=== PATIENT | male | born 1970 | race Caucasian/White ===

== ENCOUNTER 2018-10-23 14:36 | Observation (INO) ==
[2018-10-23] MEDS ORDERED: Piperacillin/Tazobactam 3.375 GM in Water for inj. (sterile) 20 ML 20 ML IVP ONE (14:51)
--- NOTE | 2018-10-23 14:54 | Emergency Department Note ---
Disposition Clinical Impression: Diabetic infection of right foot Disposition: Admitted As Inpatient Condition: Good Referrals: Gisele Valentin, [employer] [Primary Care Provider] - Forms: ED Satisfaction Letter Time of Disposition: 15:59 General Adult HPI - General Chief complaint: ED Extremity Problem,Nontraumatic Stated complaint: From Podiatry for Admission Time Seen by Provider: 10/23/18 14:43 Source: patient Mode of arrival: ambulatory Limitations: no limitations - History of Present Illness HPI Narrative: This is a 48-year-old male sent to the emergency department for admission after debridement of infected and necrotic tissue from the right great toe by the supervisor mixing in the office. He states that he developed a blister 8 weeks ago and just let it go. He has severe diabetic neuropathy. He did not realize it was as bad as it was. Wound culture was sent by podiatry. Pain Scale: 7 - Related Data Home Medications Medication Instructions Recorded Confirmed Metformin HCl [Fortamet] 1,000 mg PO BID 07/28/15 07/28/15 Pregabalin [Lyrica] 300 mg PO BID 07/28/15 07/28/15 TraMADol [Ultram] 1 tab PO Q6H PRN 07/28/15 07/28/15 Ambien 09/22/16 Amlodipine Besylate 09/22/16 Glimepiride [Amaryl] 09/22/16 Metformin HCl [Glucophage] 09/22/16 Methocarbamol [Robaxin-750] 09/22/16 Welchol 09/22/16 Previous Rx's Medication Instructions Recorded Tamsulosin [Flomax] 0.4 mg PO DAILY #15 cap.er.24h 07/28/15 Glycerin/Propylene Glycol [Soothe 1 each OP 2-3XD 7 Days droperette 09/22/16 Lubricant Eye Drops] Ibuprofen [Motrin] 600 mg PO Q6HR PRN #20 tab 06/18/17 Doxycycline 100 mg PO BID 10 Days #20 capsule 10/22/18 Allergies Allergy/AdvReac Type Severity Reaction Status Date / Time No Known Allergies Allergy Verified 10/22/18 10:48 All systems ED: reviewed and negative except as stated. Musculoskeletal: Reports: other (Necrotic diabetic foot infection of the right great toe) Past Medical History - Past Medical History Medical history: Reports: diabetes Surgical history: Reports: no surgical history Psychiatric history: Reports: no psych history - Social History Smoking Status: Never smoker Smokeless Tobacco Status: No Alcohol use: Reports: occasionally Drug use: Reports: none Physical Exam - General Limitations: no limitations General appearance: alert, in no apparent distress - Head Head exam: atraumatic, normocephalic, normal inspection - Eye Eye exam: Present: normal appearance, PERRL, EOMI - Chest Chest inspection: Present: normal inspection, symmetric chest wall rise - Respiratory Respiratory exam: Present: normal lung sounds bilaterally - Cardiovascular Cardiovascular exam: Present: regular rate, normal rhythm, normal heart sounds - Abdominal Exam Abdominal exam: Present: soft, Non-Tender. Absent: tenderness, distention, guarding, rebound, rigidity - Extremities Exam Extremities exam: Present: normal inspection, other (The right great toe has been wrapped by podiatry, and I did not unwrap it since debridement and dressing was just performed prior to emergency department arrival). Absent: pedal edema - Neurological Exam Neurological exam: Present: alert, oriented X3 - Psychiatric Psychiatric exam: Present: normal affect, normal mood - Skin Skin exam: Present: warm, dry, intact, normal color Course Course Narrative: This is a 48-year-old old male with a diabetic foot infection. It was severe enough that podiatry sent him here. With no allergies, I ordered Zosyn and vancomycin for antimicrobial coverage Vital Signs Temperature 98.3 F 10/23/18 14:39 Pulse Rate 91 10/23/18 14:39 Respiratory Rate 19 10/23/18 14:39 Blood Pressure 182/102 10/23/18 14:39 O2 Sat by Pulse Oximetry 97 10/23/18 14:39 Temperature 98.3 F 10/23/18 14:39 Pulse Rate 91 10/23/18 14:39 Respiratory Rate 19 10/23/18 14:39 Blood Pressure 182/102 10/23/18 14:39 O2 Sat by Pulse Oximetry 97 10/23/18 14:39 Oxygen Delivery Oxygen Delivery Room Air Medical Decision Making - MDM Narrative Medical decision making narrative: This is a 48-year-old male with a diabetic foot infection affecting the right great toe, now status post debridement and podiatry. Antibiotics have been given and he will be admitted to the hospitalist service. - Lab Data Lab results reviewed: Yes I reviewed the patient's lab results. Lab results narrative: CBC was unremarkable BMP was unremarkable ESR was elevated at 25 CRP was elevated at 27 Result diagrams: 10/23/18 15:09 10/23/18 15:09 Lab Results 10/23/18 10/23/18 10/23/18 Range/Units 15:09 15:09 15:09 WBC 7.9 (4.3-11.1) K/mcL RBC 4.95 (4.19-5.50) M/mcL Hgb 14.2 (12.9-16.9) g/dL Hct 42.2 (37.5-50.1) % MCV 85.3 (83.0-100.0) fL MCH 28.7 (28.0-33.3) pg MCHC 33.6 (31.6-35.5) g/dL RDW 14.3 (11.5-14.5) % Plt Count 209 (140-400) K/mcL MPV 11.0 (9.4-12.4) fL Immature Gran % 0.4 (0-4) % Seg Neutrophils % 57.1 % Lymphocytes % 30.1 % Monocytes % 8.7 % Eosinophils % 3.2 % Basophils % 0.5 % Neutrophils # 4.5 (1.6-8.9) K/mcL Lymphocytes # 2.4 (0.6-4.6) K/mcL Monocytes # 0.7 (0.0-1.3) K/mcL Eosinophils # 0.3 (0.0-0.6) K/mcL Basophils # 0.0 (0.0-0.2) K/mcL ESR 25 H (0-10) mm/hr Sodium 138 (136-145) mEq/L Potassium 3.9 (3.5-5.1) mEq/L Chloride 105 (98-107) mEq/L Carbon Dioxide 23 (23-29) mEq/L BUN 15 (6-20) mg/dL Creatinine 0.78 (0.70-1.30) mg/dL Est GFR ( Amer) > 60 (> 60) Est GFR (Non-Af Amer) > 60 (> 60) BUN/Creatinine Ratio 19 (6-26) Glucose 254 H (70-105) mg/dL Calculated Osmolality 295 (280-300) Calcium 9.3 (8.6-10.3) mg/dL C-Reactive Protein (Less than 10) mg/L 10/23/18 Range/Units 15:09 WBC (4.3-11.1) K/mcL RBC (4.19-5.50) M/mcL Hgb (12.9-16.9) g/dL Hct (37.5-50.1) % MCV (83.0-100.0) fL MCH (28.0-33.3) pg MCHC (31.6-35.5) g/dL RDW (11.5-14.5) % Plt Count (140-400) K/mcL MPV (9.4-12.4) fL Immature Gran % (0-4) % Seg Neutrophils % % Lymphocytes % % Monocytes % % Eosinophils % % Basophils % % Neutrophils # (1.6-8.9) K/mcL Lymphocytes # (0.6-4.6) K/mcL Monocytes # (0.0-1.3) K/mcL Eosinophils # (0.0-0.6) K/mcL Basophils # (0.0-0.2) K/mcL ESR (0-10) mm/hr Sodium (136-145) mEq/L Potassium (3.5-5.1) mEq/L Chloride (98-107) mEq/L Carbon Dioxide (23-29) mEq/L BUN (6-20) mg/dL Creatinine (0.70-1.30) mg/dL Est GFR ( Amer) (> 60) Est GFR (Non-Af Amer) (> 60) BUN/Creatinine Ratio (6-26) Glucose (70-105) mg/dL Calculated Osmolality (280-300) Calcium (8.6-10.3) mg/dL C-Reactive Protein 27 H (Less than 10) mg/L Critical Care Time Critical Care Time: No
[2018-10-23 15:22] LABS: Basophils % 0.5 %; Eosinophils # 0.3 K/mcL (0.0-0.6); Eosinophils % 3.2 %; Hematocrit 42.2 % (37.5-50.1); Hemoglobin 14.2 g/dL (12.9-16.9); Immature Granulocytes % 0.4 % (0-4); Lymphocytes # 2.4 K/mcL (0.6-4.6); Lymphocytes % 30.1 %; Mean Corpuscular HGB Conc 33.6 g/dL (31.6-35.5); Mean Corpuscular Hemoglobin 28.7 pg (28.0-33.3); Mean Corpuscular Volume 85.3 fL (83.0-100.0); Monocytes # 0.7 K/mcL (0.0-1.3); Monocytes % 8.7 %; Neutrophils # 4.5 K/mcL (1.6-8.9); Platelet Count 209 K/mcL (140-400); Red Blood Count 4.95 M/mcL (4.19-5.50); Red Cell Distribution Width 14.3 % (11.5-14.5); Segmented Neutrophils % 57.1 %
[2018-10-23 15:40] LABS: BUN/Creatinine Ratio 19 (6-26); Blood Urea Nitrogen 15 mg/dL (6-20); Calcium 9.3 mg/dL (8.6-10.3); Carbon Dioxide 23 mEq/L (23-29); Chloride 105 mEq/L (98-107); Glucose 254 mg/dL (70-105); Osmolality,Calculated 295 (280-300); Potassium 3.9 mEq/L (3.5-5.1); Sodium 138 mEq/L (136-145); eGFR For Non-African Americans > 60 (> 60)
[2018-10-23] MEDS ORDERED: Dextrose Gel 15 GM/37.5 ML TUBE PO PRN ×2 (16:09)
[2018-10-23] MEDS ORDERED: D5% in Water 1,000 ML IVC PRN (16:09)
[2018-10-23] MEDS ORDERED: *HR* Dextrose 50 % in Water (Syg) 50 ML SYRINGE IVP PRN (16:09)
[2018-10-23] MEDS ORDERED: Acetaminophen 325 MG TABLET PO PRN (16:47)
[2018-10-23] MEDS ORDERED: Naloxone 0.4 MG/ML INJ IVP PRN (16:47)
--- NOTE | 2018-10-23 16:49 | Internal Med History&Physical ---
Date of Encounter: 10/23/18 Time of Encounter: 16:45 Internal Medicine - H&P: HPI Chief complaint: Right big toe infection Admitted From: Home Plans for Post Hospital Care: Home History of present illness: Mr. Mata is a 48 year old male with medical history of hypertension, diabetes mellitus on oral agents, morbid obesity who presented to the emergency room after being referred from the podiatry clinic for evaluation for his right big toe infection. The patient reports he developed a blister on his right big toe a couple of months ago, he reports he has neuropathy and has some loss of sensation on his feet from his diabetes. However, he reports that blister did not improve, and when the skin came off, the wound continued to expand. He reports associated foul smelling discharge as well as subjective fever and chills. He presented to an urgent care facility and was started on doxycycline and referred to podiatry. On evaluation at the podiatry clinic today had a debridement done and referred to the hospital for further evaluation. He reports he has no had any fevers since 10/21, he denies chest, respiratory, abdominal, neurologic, or genitourinary symptoms. He has no known allergies He is otherwise hemodynamically stable He has never smoked, denied illicit drug use He is full code Work up in the ER showed a normal CBC and Chem. Hyperglycemia, CRP 27, ESR 25 He will be placed on observation for an infected diabetic ulcer, no current evidence of sepsis Past Med Surg Social Fam HX - Past Medical History Medical history: diabetes, other Additional medical history: peripheral neuropathy Psychiatric history: no psych history - Past Surgical History Surgical History: no surgical history - Social History Smoking Status: Never smoker Smokeless Tobacco Status: Yes Alcohol use: occasionally Drug use: none Internal Medicine - H&P: Meds Metformin HCl [Fortamet] 1,000 mg PO BID 07/28/15 [History] Pregabalin [Lyrica] 300 mg PO BID 07/28/15 [History] Tamsulosin [Flomax] 0.4 mg PO DAILY #15 cap.er.24h 07/28/15 [Rx] TraMADol [Ultram] 1 tab PO Q6H PRN 07/28/15 [History] Ambien 09/22/16 [History] Amlodipine Besylate 09/22/16 [History] Glimepiride [Amaryl] 09/22/16 [History] Glycerin/Propylene Glycol [Soothe Lubricant Eye Drops] 1 each OP 2-3XD 7 Days droperette 09/22/16 [Rx] Metformin HCl [Glucophage] 09/22/16 [History] Methocarbamol [Robaxin-750] 09/22/16 [History] Welchol 09/22/16 [History] Ibuprofen [Motrin] 600 mg PO Q6HR PRN #20 tab 06/18/17 [Rx] Doxycycline 100 mg PO BID 10 Days #20 capsule 10/22/18 [Rx] Allergy/AdvReac Type Severity Reaction Status Date / Time No Known Allergies Allergy Verified 10/23/18 16:06 All Systems PM: A 10-system review of systems was performed and is negative for pertinent findings except as documented above in the HPI. - Constitutional Constitutional: as per HPI - EENT Eyes: as per HPI Ears: as per HPI Nose, mouth and throat: as per HPI - Cardiovascular Cardiovascular ROS IM: as per HPI - Respiratory Respiratory: as per HPI - Gastrointestinal Gastrointestinal: as per HPI - Musculoskeletal Musculoskeletal ROS IM: as per HPI - Integumentary Integumentary IM: as per HPI - Neurological Neurological ROS: as per HPI - Hematologic/Lymphatic Hematologic/Lymphatic: as per HPI - Constitutional Vitals: Temp Pulse Resp BP Pulse Ox 98.3 F 72 20 150/80 97 10/23/18 16:11 10/23/18 16:11 10/23/18 16:11 10/23/18 16:11 10/23/18 16:11 Exam: Vitals : VSS Gen: Morbidly obese, not in any form of distress, calm HEENT: Moist oral mucosa, not pale, anicteric, normal neck inspection Chest: CTAB, no added sounds Heart: S1, S2 only, no m/g/r Abdomen: Soft, not tender, no palpably enlarged organs, obese, BS present in all quadrants Extremities: Right big toe in dressing, ~5X4 cm wound with granulation tissue, no visible bony component, no discharge, pulses present bilaterally Neurologic: AAOX3, moves all extremities, no focal deficits Psych: Appropriate affect, no agitation Skin: No rash Internal Med - H&P Results - Labs CBC & Chem 7: 10/23/18 15:09 10/23/18 15:09 Labs: Short CBC 10/23/18 Range/Units 15:09 WBC 7.9 (4.3-11.1) K/mcL Hgb 14.2 (12.9-16.9) g/dL Hct 42.2 (37.5-50.1) % Plt Count 209 (140-400) K/mcL Neutrophils # 4.5 (1.6-8.9) K/mcL BMP 10/23/18 15:09 Sodium 138 Potassium 3.9 Chloride 105 Carbon Dioxide 23 BUN 15 Creatinine 0.78 Glucose 254 H Calcium 9.3 - Impressions ITS Impressions Foot X-Ray 10/23/18 15:01 IMPRESSION: Questionable mild ulceration at recent debridement site at the medial 1st digit. No subcutaneous gas or evidence of osteomyelitis. D/ / Mino Randhawa MD / Mino Randhawa MD Interpreting Provider: Mino Randhawa MD - Assessment and plan (1) Cellulitis of great toe of right foot Current Visit: Yes Status: Acute Assessment and plan: Patient with hx of DM, who has had a Right big toe plantar surface wound for the past 8 weeks New onset fevers and chills which resolved after resuming antibiotics which she received at urgent care yesterday 10/22 Status post debridement by wood ski maker today 10/23 No evidence of sepsis No evidence of osteomyelitis x-ray ESR and CRP elevated at 25 and 27 respectively Blood culture sent and pending Continue vancomycin and Zosyn Follow cultures from wound debridement Patient is currently hemodynamically stable (2) Diabetes mellitus Current Visit: Yes Status: Chronic Assessment and plan: Patient with uncontrolled DM, the patient A1c was 7.2 at last visit Check A1c with a.m. start patient on basal and sliding scale insulin Fingerstick before meals and at bedtime Diabetic diet Qualifiers: Diabetes mellitus type: type 2 Diabetes mellitus nursing home insulin use: without long term care pharmacist use Diabetes mellitus complication status: with skin complications Diabetes mellitus complication detail: with foot ulcer Qualified Code(s): E11.621 - Type 2 diabetes mellitus with foot ulcer; L97.509 - Non-pressure chronic ulcer of other part of unspecified foot with unspecified severity (3) Obesity Current Visit: Yes Status: Chronic Assessment and plan: Lifestyle modification Qualifiers: Obesity type: unspecified obesity type Obesity classification: adult class 3 (BMI >= 40) Serious obesity comorbidity presence: without serious comorbidity Body mass index: BMI 40.0-44.9 Qualified Code(s): E66.01 - Morbid (severe) obesity due to excess calories; Z68.41 - Body mass index (BMI) 40.0-44.9, adult (4) HTN (hypertension) Current Visit: Yes Status: Chronic Assessment and plan: resume home meds Qualifiers: Hypertension type: essential hypertension Qualified Code(s): I10 - Essential (primary) hypertension - Time Spent With Patient Total time spent is greater than 50% in coordination of care (as documented) at patient's floor/unit and/or counseling patient:
[2018-10-23] MEDS ORDERED: amLODIPine 5 MG TABLET PO ONE (17:09)
[2018-10-23] MEDS: Insulin LISPRO 300 UNITS/3 ML VIAL SQ SCH ×2 (17:38→21:57)
[2018-10-23] MEDS: *HR* OxyCODONE Immed Rel 5 MG TABLET PO PRN (19:29)
[2018-10-23] MEDS: Insulin DETEMIR 100 UNIT/ML X5UNITS SQ SCH (21:58)
[2018-10-23] MEDS: *HR* HYDROcodone/Acet 5/325 mg TABLET PO PRN (22:47)
[2018-10-24] MEDS: Piperacillin/Tazobactam 3.375 GM in 0.9 % Sodium Chloride Mini Bag 100 ML IVPB SCH ×3 (00:20→16:56)
[2018-10-24 04:35] LABS: Basophils # 0.1 K/mcL (0.0-0.2); Basophils % 0.6 %; Eosinophils # 0.3 K/mcL (0.0-0.6); Eosinophils % 3.4 %; Hematocrit 39.5 % (37.5-50.1); Hemoglobin 12.8 g/dL (12.9-16.9); Immature Granulocytes % 0.2 % (0-4); Lymphocytes # 3.1 K/mcL (0.6-4.6); Lymphocytes % 38.1 %; Mean Corpuscular HGB Conc 32.4 g/dL (31.6-35.5); Mean Corpuscular Hemoglobin 28.2 pg (28.0-33.3); Mean Platelet Volume 11.2 fL (9.4-12.4); Monocytes # 0.8 K/mcL (0.0-1.3); Monocytes % 9.2 %; Platelet Count 194 K/mcL (140-400); Red Blood Count 4.54 M/mcL (4.19-5.50); Red Cell Distribution Width 14.6 % (11.5-14.5); Segmented Neutrophils % 48.5 %
[2018-10-24] MEDS: *HR* OxyCODONE Immed Rel 5 MG TABLET PO PRN ×2 (04:36→15:01)
[2018-10-24 04:57] LABS: BUN/Creatinine Ratio 15 (6-26); Blood Urea Nitrogen 13 mg/dL (6-20); Carbon Dioxide 27 mEq/L (23-29); Chloride 104 mEq/L (98-107); Glucose 107 mg/dL (70-105); Osmolality,Calculated 289 (280-300); Potassium 3.6 mEq/L (3.5-5.1); Sodium 139 mEq/L (136-145); eGFR For Non-African Americans > 60 (> 60)
--- NOTE | 2018-10-24 07:20 | Podiatry Consult Note ---
Date of Encounter: 10/24/18 Time of Encounter: 07:16 Assessment and Plan (1) Cellulitis of great toe of right foot Current visit: Yes Status: Acute 1. Patient with improved cellulitis after starting IV antibiotics. 2. Continue Vanc/Zosyn until cultures finalize. 3. Will monitor on IV antibiotics for 48 hours and likely discharge at that time with PO antibiotics. (2) Diabetic infection of right foot Current visit: Yes Status: Acute 1. WBC normal. ESR and CRP mildly elevated. Xrays reviewed which showed not evidence of osteomyelitis of the toe. Overall, he is stable and cellulitis is improving. I recommend continued local wound care and IV antibiotics. Will tailor PO antibiotics based on cultures sent from clinic yesterday. 2. Wound irrigated with normal saline and dressed with betadine soaked kerlix. Will change daily. 3. No MRI warranted at this time. History of Present Illness Chief complaint: right foot wound infction HPI: Mr. Mata is a 48 year old male admitted to [facility] after being seen in P odiatry clinic yesterday. He reports that 8 weeks ago he developed a blister to the right 1st toe that became a larger ulceration. He reported subjective fever and chills 2 days prior to admission. He denies n/v/f/c at this time. He was initially started on PO Doxycycline after going to urgent care. He reports that he is feeling better today and believes the redness has gone down. Past Med Surg Social Fam HX - Past Medical History Medical history: diabetes, other Additional medical history: peripheral neuropathy Psychiatric history: no psych history - Past Surgical History Surgical History: no surgical history - Social History Smoking Status: Never smoker Smokeless Tobacco Status: Yes Alcohol use: occasionally Drug use: none - Family History Mother Living Status: Still Living Father Living Status: Medications and Allergies Metformin HCl [Fortamet] 1,000 mg PO BID 07/28/15 [History] Pregabalin [Lyrica] 300 mg PO BID 07/28/15 [History] Colesevelam HCl [Welchol] 1,875 mg PO DAILY 09/22/16 [History] Glimepiride [Amaryl] 4 mg PO BID 09/22/16 [History] Methocarbamol [Robaxin-750] 750 mg PO BID 09/22/16 [History] Doxycycline 100 mg PO BID 10 Days #20 capsule 11/26/18 [Rx] Amitriptyline [Elavil] 25 mg PO HS PRN 10/23/18 [History] Pioglitazone HCl 30 mg PO DAILY 10/23/18 [History] Tadalafil [Cialis] 5 mg PO DAILY PRN 10/23/18 [History] Tramadol HCl [Ultram] 50 mg PO QID PRN 10/23/18 [History] Zolpidem [Ambien] 10 mg PO HS 10/23/18 [History] Allergy/AdvReac Type Severity Reaction Status Date / Time No Known Allergies Allergy Verified 10/23/18 16:06 All Systems Reviewed: The remainder of the systems were reviewed and are negative Physical Exam - Constitutional Vitals: Temp Pulse Resp BP Pulse Ox 98.2 F 66 16 133/84 96 10/24/18 03:44 10/24/18 03:44 10/24/18 03:44 10/24/18 03:44 10/24/18 03:44 Exam: Alert, oriented x3, well-appearing. Vascular: DP and PT palpable bilateral. Capillary refill less than 3 seconds to all digits. Skin temperature warm to warm comparing toes to legs. Dermatology: Right medial hallux ulceration Salazar grade II, measuring 3.0cm x 2.5cm x 0.5cm. Granular base 90% with 10% fibrotic tissue. No probe to bone. Erythema extending to IPJ, improved since yesterday. No crepitus. No active drainage. Musculoskeletal: Tenderness right hallux ulcer. Hallux limitus. No pain with compression of calf. Neuro: Sensations diminished bilateral lower extremity. Results - Labs Result Diagrams: 10/24/18 03:36 10/24/18 03:36 Labs: Abnormal lab results Hgb 12.8 g/dL (12.9-16.9) L 10/24/18 03:36 RDW 14.6 % (11.5-14.5) H 10/24/18 03:36 ESR 25 mm/hr (0-10) H 10/23/18 15:09 Glucose 107 mg/dL (70-105) H 10/24/18 03:36 C-Reactive Protein 27 mg/L (Less than 10) H 10/23/18 15:09 H & H 10/23/18 10/24/18 Range/Units 15:09 03:36 Hgb 14.2 12.8 L (12.9-16.9) g/dL Hct 42.2 39.5 (37.5-50.1) % All other labs normal. Consult Discharge Plan - Plan Additional Instructions: 1. Wound care dressing daily with: normal saline irrigation, silvercel and dry dressing to the wound. Orthowedge shoe will be dispensed prior to discharge for offloading. 2. Follow up with Dr. Andre Amaro in Podiatry clinic 2 weeks after discharge. Referrals: Gisele Valentin, [facility] [Primary Care Provider] -
[2018-10-24] MEDS: Insulin LISPRO 300 UNITS/3 ML VIAL SQ SCH ×4 (07:33→19:41)
[2018-10-24] MEDS: amLODIPine 5 MG TABLET PO SCH (07:45)
[2018-10-24] MEDS: *HR* HYDROcodone/Acet 5/325 mg TABLET PO PRN ×2 (07:45→19:32)
[2018-10-24 08:19] LABS: Estimated Average Glucose 163 mg/dl; Hemoglobin A1C 7.3 %
--- NOTE | 2018-10-24 13:31 | Internal Med Progress Note ---
Hospitalist Progress Note - Encounter Date of Encounter: 10/24/18 Time of Encounter: 12:00 - Subjective Interval History: Mr. Mata is a 48 year old male with medical history of hypertension, diabetes mellitus on oral agents, morbid obesity who presented to the emergency room after being referred from the podiatry clinic for evaluation for his right big toe open ulcer and cellulites. Pt did mention he noticed a small blister few weeks ago who seems to be progressively worsening and developed into an ulcer now. he also noticed worsening swelling and erythema around the ulcer area. - Exam Vitals: Temp Pulse Resp BP Pulse Ox 98.8 F 71 16 158/78 95 10/24/18 10:46 10/24/18 10:46 10/24/18 10:46 10/24/18 10:46 10/24/18 10:46 Exam: Gen: Morbidly obese, not in any form of distress, calm Chest: CTAB, no wheezing Heart: S1, S2+ RRR No murmurs Abdomen: Soft, not tender Extremities: Right big toe in dressing, ~5X4 cm wound with nice granulation tissue and small discharge, no visible bony component noticed, pulses present bilaterally Neurologic: no focal deficits Skin: No rash - Assessment and Plan (1) Cellulitis of great toe of right foot Current Visit: Yes Status: Acute Assessment and Plan: So far blood cx no growth Wound cx - P Podiatry evaluated the pt , recommend to continue IV abx another day will deescalate abx after wound cx results continue empirical antibiotic vancomycin and Zosyn for now (2) Diabetes mellitus Current Visit: Yes Status: Chronic Assessment and Plan: HbA1C 7.3 Cont ADA diet Cont ISS (3) Obesity Current Visit: Yes Status: Chronic Assessment and Plan: Lifestyle modification (4) HTN (hypertension) Current Visit: Yes Status: Chronic Assessment and Plan: Stable with current home medications - Time Spent with Patient Total time spent is greater than 50% in coordination of care (as documented) at patient's floor/unit and/or counseling patient: Internal Medicine: Result - Labs CBC & Chem 7: 10/24/18 03:36 10/24/18 03:36 Labs: Short CBC 10/23/18 10/24/18 Range/Units 15:09 03:36 WBC 7.9 8.2 (4.3-11.1) K/mcL Hgb 14.2 12.8 L (12.9-16.9) g/dL Hct 42.2 39.5 (37.5-50.1) % Plt Count 209 194 (140-400) K/mcL Neutrophils # 4.5 4.0 (1.6-8.9) K/mcL BMP 10/23/18 10/24/18 15:09 03:36 Sodium 138 139 Potassium 3.9 3.6 Chloride 105 104 Carbon Dioxide 23 27 BUN 15 13 Creatinine 0.78 0.86 Glucose 254 H 107 H Calcium 9.3 9.0 - Impressions Impressions Foot X-Ray 10/23/18 15:01 IMPRESSION: Questionable mild ulceration at recent debridement site at the medial 1st digit. No subcutaneous gas or evidence of osteomyelitis. D/ / Mino Randhawa MD / Mino Randhawa MD Interpreting Provider: Mino Randhawa MD Consult Discharge Plan - Plan Additional Instructions: 1. Wound care dressing daily with: normal saline irrigation, silvercel and dry dressing to the wound. Orthowedge shoe will be dispensed prior to discharge for offloading. 2. Follow up with Dr. Andre Amaro in Podiatry clinic 2 weeks after discharge. Referrals: Gisele Valentin, SYSTEMS ACCOUNTANT [Primary Care Provider] - (2) Diabetes mellitus Qualifiers: Diabetes mellitus type: type 2 Diabetes mellitus superintendent container terminal insulin use: without superintendent container terminal use Diabetes mellitus complication status: with skin complications Diabetes mellitus complication detail: with foot ulcer Qualified Code(s): E11.621 - Type 2 diabetes mellitus with foot ulcer; L97.509 - Non- pressure chronic ulcer of other part of unspecified foot with unspecified severity (3) Obesity Qualifiers: Obesity type: unspecified obesity type Obesity classification: adult class 3 (BMI >= 40) Serious obesity comorbidity presence: without serious comorbidity Body mass index: BMI 40.0-44.9 Qualified Code(s): E66.01 - Morbid (severe) obesity due to excess calories; Z68.41 - Body mass index (BMI) 40.0-44.9, adult (4) HTN (hypertension) Qualifiers: Hypertension type: essential hypertension Qualified Code(s): I10 - Essential (primary) hypertension
[2018-10-24] MEDS: Insulin DETEMIR 100 UNIT/ML X5UNITS SQ SCH (20:27)
[2018-10-25] MEDS: Piperacillin/Tazobactam 3.375 GM in 0.9 % Sodium Chloride Mini Bag 100 ML IVPB SCH ×2 (01:40→09:00)
[2018-10-25] MEDS: *HR* OxyCODONE Immed Rel 5 MG TABLET PO PRN ×2 (01:43→09:18)
[2018-10-25] MEDS: *HR* HYDROcodone/Acet 5/325 mg TABLET PO PRN (05:49)
[2018-10-25 07:52] VITALS: BP 145/80
--- NOTE | 2018-10-25 08:01 | Podiatry Progress Note ---
Date of Encounter: 10/25/18 Time of Encounter: 07:57 - Assessment and Plan (1) Cellulitis of great toe of right foot Current Visit: Yes Status: Acute 1. Cellulitis has improved with IV antibiotics. 2. Continue Vanc/Zosyn for total of 48 hours which should end later today. Then transition to PO Bactrim for 2 weeks at discharge. 3. Patient can discharge later today with local wound care: normal saline irrigation daily followed by Santyl to the wound, then dry dressing. 4. Follow up with Dr. Andre Amaro in Podiatry clinic on 11/02/18. (2) Diabetic infection of right foot Current Visit: Yes Status: Acute 1. WBC normal. ESR and CRP mildly elevated. Xrays reviewed which showed not evidence of osteomyelitis of the toe. Overall, he is stable and cellulitis is improving. Patient can discharge later today with previously mentioned recommendations. 2. No MRI warranted at this time. Subjective Principal diagnosis: diabetic foot ulcer, cellulitis Interval history: Patient progressing well. Cellulitis improving on IV antibiotics. Cultures not yet processed from tissue culture performed in clinic. Patient can discharge later today after total of 48 hours IV antibiotics and will follow up in clinic. He denies n/v/f/c. Objective - Vital Signs Vital Signs: Vital Signs Temp Pulse Resp BP Pulse Ox 10/25/18 07:47 97.7 F 53 18 145/80 96 10/25/18 03:54 98.3 F 57 14 128/76 93 10/24/18 23:24 97.8 F 59 14 139/79 95 10/24/18 19:23 98.1 F 72 16 148/88 97 10/24/18 16:00 98.0 F 57 17 141/76 97 10/24/18 10:46 98.8 F 71 16 158/78 95 Intake and Output 10/24/18 10/24/18 10/25/18 15:59 23:59 07:59 Intake Total 340 / 340 840 / 840 Output Total 0 / 0 0 / 0 Balance 340 / 340 840 / 840 0 / 0 Intake: IV Fluids 100 / 100 600 / 600 Zosyn 3.375 GM In 0.9 % Sodium 100 / 100 100 / 100 Chloride (Mini-Bag +) 100 ML @ 25 mls/hr IVPB Q8HR [facility] Rx#: [id number] Vancocin 2,000 MG In 0.9 % 500 / 500 Sodium Chloride 500 ML @ 250 mls/hr IVPB Q12H [facility] Rx#: [id number] Oral 240 / 240 240 / 240 Output: Urine 0 / 0 0 / 0 Other: Meal Lunch Dinner Percent of Meal Consumed 50% 100% Weight 139.6 kg Blood Glucose* 154 189 163 Patient Weight 10/25/18 23:59 Weight 139.6 kg - Exam Exam: Alert, oriented x3, well-appearing. Vascular: DP and PT palpable bilateral. Capillary refill less than 3 seconds to all digits. Skin temperature warm to warm comparing toes to legs. Dermatology: Right medial hallux ulceration Salazar grade II, measuring 3.0cm x 2.5cm x 0.5cm. Granular base 90% with 10% fibrotic tissue. No probe to bone. Mild periwound erythema, with continued improvement. No crepitus. No active drainage. Musculoskeletal: Tenderness right hallux ulcer. Hallux limitus. No pain with compression of calf. Neuro: Sensations diminished bilateral lower extremity. - Lab Result Diagrams: 10/24/18 03:36 10/24/18 03:36 Labs: Abnormal lab results Hgb 12.8 g/dL (12.9-16.9) L 10/24/18 03:36 RDW 14.6 % (11.5-14.5) H 10/24/18 03:36 ESR 25 mm/hr (0-10) H 10/23/18 15:09 Glucose 107 mg/dL (70-105) H 10/24/18 03:36 POC Glucose 189 mg/dL (70-99) H 10/24/18 19:40 Hemoglobin A1c 7.3 % (-5.6) H 10/24/18 03:36 C-Reactive Protein 27 mg/L (Less than 10) H 10/23/18 15:09 Vancomycin Trough 13 mcg/mL (5-10) H 10/25/18 04:13 Microbiology, Last 48 Hours 10/23/18 15:09 Blood Culture - Preliminary Peripheral Venipuncture Culture is incubating and being continuously monitored for growth. Final report to follow. 10/23/18 15:09 Blood Culture - Preliminary Peripheral Venipuncture Culture is incubating and being continuously monitored for growth. Final report to follow. Consult Discharge Plan - Plan Additional Instructions: 1. Wound care dressing daily with: normal saline irrigation, Santyl and dry dressing to the wound. Orthowedge shoe will be dispensed prior to discharge for offloading. Please discharge with Bactrim x14 days at discharge. Will follow up previous culture to determine further antibiotic needs in the outpatient setting. 2. Follow up with Dr. Andre Amaro on 11/02/18. Please assist with scheduling this follow up appointment. Referrals: Gisele Valentin, CA[facility] [Primary Care Provider] -
[2018-10-25] MEDS: Insulin LISPRO 300 UNITS/3 ML VIAL SQ SCH (09:01)
[2018-10-25] MEDS: amLODIPine 5 MG TABLET PO SCH (09:02)
[2018-10-25 09:12] LABS: Hematocrit 40.4 % (37.5-50.1); Hemoglobin 13.2 g/dL (12.9-16.9)
--- NOTE | 2018-10-25 11:08 | Discharge Summary ---
- NOTES TO OUTPATIENT PROVIDER Notes to Outpatient Provider: Please follow up with PCP in one week. Please follow up with health/safety job [facility] Dr. Amaro in 1 week. Continue local wound care with daily dressing - normal saline irrigation daily followed by Ubaldoyl to the wound, then dry dressing Orders not resulted at time of discharge: Pending orders 10/23/18 15:09 Culture,Blood [BC] Stat Date of Encounter: 10/25/18 Time of Encounter: 11:02 - Discharge Diagnosis (1) Cellulitis of great toe of right foot Priority: Primary Status: Acute (2) Diabetes mellitus Priority: Secondary Status: Chronic Qualifiers: Diabetes mellitus type: type 2 Diabetes mellitus chcf insulin use: without chcf use Diabetes mellitus complication status: with skin complications Diabetes mellitus complication detail: with foot ulcer Qualified Code(s): E11.621 - Type 2 diabetes mellitus with foot ulcer; L97.509 - Non-pressure chronic ulcer of other part of unspecified foot with unspecified severity (3) Obesity Priority: Secondary Status: Chronic Qualifiers: Obesity type: unspecified obesity type Obesity classification: adult class 3 (BMI >= 40) Serious obesity comorbidity presence: without serious comorbidity Body mass index: BMI 40.0-44.9 Qualified Code(s): E66.01 - Morbid (severe) obesity due to excess calories; Z68.41 - Body mass index (BMI) 40.0-44.9, adult (4) HTN (hypertension) Priority: Secondary Status: Chronic Qualifiers: Hypertension type: essential hypertension Qualified Code(s): I10 - Essential (primary) hypertension Hospital course: Mr. Mata is a 48 year old male with medical history of hypertension, diabetes mellitus on oral agents, morbid obesity who presented to the emergency room after being referred from the podiatry clinic for evaluation for his right big toe open ulcer and cellulites. Pt did mention he noticed a small blister few weeks ago who seems to be progressively worsening and developed into an ulcer now. he also noticed worsening swelling and erythema around the ulcer area. Patient was admitted in the hospital and started him on empirical antibiotic Zosyn and vancomycin. Pt was evaluated by health/safety job [facility], recommend to continue abx and local wound care. His blood culture did not grow any bacteria. His wound culture from 10/22/18 did not grow any bacteria. His foot swelling and cellulitis improved. Ulcer more granulation tissue now. At this point samara rist recommended to switch to oral antibiotic Bactrim for 2 weeks. So will d/c him home in stable condition today. - Time Spent with Patient Total time spent providing and/or coordinating discharge services: - Discharge Medications Prescriptions: amLODIPine [Norvasc] 10 mg PO DAILY #30 tablet Lactobacillus Acidophilus [Acidophilus] 1 each PO BID #60 capsule Sulfamethoxazole/Trimeth DS [Bactrim DS] 1 each PO BID #30 tablet Home Medications: Metformin HCl [Fortamet] 1,000 mg PO BID 07/28/15 [History] Pregabalin [Lyrica] 300 mg PO BID 07/28/15 [History] Colesevelam HCl [Welchol] 1,875 mg PO DAILY 09/22/16 [History] Glimepiride [Amaryl] 4 mg PO BID 09/22/16 [History] Methocarbamol [Robaxin-750] 750 mg PO BID 09/22/16 [History] Amitriptyline [Elavil] 25 mg PO HS PRN 10/23/18 [History] Pioglitazone HCl 30 mg PO DAILY 10/23/18 [History] Tadalafil [Cialis] 5 mg PO DAILY PRN 10/23/18 [History] Tramadol HCl [Ultram] 50 mg PO QID PRN 10/23/18 [History] Zolpidem [Ambien] 10 mg PO HS 10/23/18 [History] Lactobacillus Acidophilus [Acidophilus] 1 each PO BID #60 capsule 10/25/18 [Rx] Sulfamethoxazole/Trimeth DS [Bactrim DS] 1 each PO BID #30 tablet 10/25/18 [Rx] amLODIPine [Norvasc] 10 mg PO DAILY #30 tablet 10/25/18 [Rx] Allergies/Adverse Reactions: Allergy/AdvReac Type Severity Reaction Status Date / Time No Known Allergies Allergy Verified 10/23/18 16:06 Date of admission: 10/23/18 16:33 Primary care physician: Gisele Valentin CNP - Constitutional Vitals: Temp Pulse Resp BP Pulse Ox 97.7 F 53 18 145/80 96 10/25/18 07:47 10/25/18 07:47 10/25/18 07:47 10/25/18 07:47 10/25/18 07:47 General appearance: Present: cooperative, A&O X 3, answers questions appropriately Exam: Gen: Morbidly obese, not in any form of distress, calm Chest: CTAB, no wheezing Heart: S1, S2+ RRR No murmurs Abdomen: Soft, not tender Extremities: Right big toe in dressing, ~5X4 cm wound with nice granulation tissue and no visible bony component noticed, pulses present bilaterally Neurologic: no focal deficits - Patient Status Disposition: Home, Self-Care Condition: Good Overall status at discharge: patient is back to baseline - Discharge Instructions Instructions: Cellulitis (DC) Follow Up With: Gisele Valentin, [facility] [Primary Care Provider] - Andre Amaro DPM [Partnered Physician] - Additional Instructions: 1. Wound care dressing daily with: normal saline irrigation, Santyl and dry dressing to the wound. Orthowedge shoe will be dispensed prior to discharge for offloading. Please discharge with Bactrim x14 days at discharge. Will follow up previous culture to determine further antibiotic needs in the outpatient setting. 2. Follow up with Dr. Andre Amaro on 11/02/18. Please assist with scheduling this follow up appointment. - Diet and Activity Activity: increase activity as tolerated Diet: low salt diet
== END 2018-10-25 13:19 | disposition home or self-care (01) ==
LOC: 3BNU 14:36 → EMEROOARM 14:36 → SUATTDRO 16:33 → 3BNU 17:25
PROVIDERS: ADMIT Internal Medicine Cardiovascular Disease; ATTEND Family Medicine

== ENCOUNTER 2020-06-24 12:45 | Inpatient (IN) ==
[2020-06-24] MEDS ORDERED: 0.9 % Sodium Chloride 1,000 ML IVC ONE (13:16)
[2020-06-24 13:36] LABS: Basophils # 0.1 K/mcL (0.0-0.2); Basophils % 0.3 %; Eosinophils # 0.1 K/mcL (0.0-0.6); Eosinophils % 0.6 %; Immature Granulocytes % 0.3 % (0-4); Lymphocytes # 1.3 K/mcL (0.6-4.6); Lymphocytes % 8.8 %; Mean Corpuscular HGB Conc 32.6 g/dL (31.6-35.5); Mean Corpuscular Hemoglobin 29.2 pg (28.0-33.3); Mean Corpuscular Volume 89.6 fL (83.0-100.0); Mean Platelet Volume 11.3 fL (9.4-12.4); Monocytes # 1.2 K/mcL (0.0-1.3); Monocytes % 8.5 %; Neutrophils # 11.7 K/mcL (1.6-8.9); Platelet Count 223 K/mcL (140-400); Segmented Neutrophils % 81.5 %; White Blood Count 14.4 K/mcL (4.3-11.1)
[2020-06-24] MEDS ORDERED: Morphine Sulfate 2 MG/ML SYRINGE IVP ONE (13:55)
[2020-06-24 14:01] LABS: Alanine Aminotransferase 12 Units/L (7-52); Albumin 4.2 g/dL (3.5-5.7); Albumin/Globulin Ratio 1.4 (1.1-2.2); Alkaline Phosphatase 84 Units/L (34-104); Aspartate Amino Transferase 9 Units/L (13-39); BUN/Creatinine Ratio 15 (6-26); Bilirubin,Total 0.5 mg/dL (0.3-1.0); Blood Urea Nitrogen 14 mg/dL (6-20); C-Reactive Protein 158 mg/L (Less than 10); Calcium 9.5 mg/dL (8.6-10.3); Carbon Dioxide 22 mEq/L (23-29); Chloride 102 mEq/L (98-107); Globulin 3.1 g/dL (2.4-3.5); Glucose 297 mg/dL (70-105); Osmolality,Calculated 294 (280-300); Sodium 136 mEq/L (136-145); Total Protein 7.3 g/dL (6.4-8.9); Troponin I 0.03 ng/mL (< 0.04); eGFR For African Americans > 60 (> 60); eGFR For Non-African Americans > 60 (> 60)
[2020-06-24] MEDS ORDERED: Piperacillin/Tazobactam 3.375 GM in 0.9 % Sodium Chloride Mini Bag 100 ML IVPB ONE (14:11)
[2020-06-24] MEDS ORDERED: Gadolinium Contrast Agent (WT Based) IV PRN (15:08)
[2020-06-24] MEDS ORDERED: Naloxone 0.4 MG/ML INJ IVP PRN (16:30)
[2020-06-24] MEDS ORDERED: *HR* HYDROcodone/Acet 5/325 mg TABLET PO PRN (16:50)
[2020-06-24] MEDS ORDERED: Ondansetron ODT 4 MG TAB.RAPDIS SL PRN (16:50)
[2020-06-24] MEDS ORDERED: *HR* Dextrose 50 % in Water (Vial) 50 ML VIAL IVP PRN (17:06)
[2020-06-24] MEDS ORDERED: D5% in Water 1,000 ML IVC PRN (17:06)
[2020-06-24] MEDS ORDERED: Dextrose Gel 15 GM/37.5 ML TUBE PO PRN ×2 (17:06)
[2020-06-24] MEDS: Lactobacillus 1 EACH CAP.SPRINK PO SCH (20:49)
[2020-06-24] MEDS: methocarbamoL 750 MG TABLET PO SCH (20:49)
[2020-06-24] MEDS: Pregabalin 75 MG CAPSULE PO SCH (20:49)
[2020-06-24] MEDS: Acetaminophen 325 MG TABLET PO PRN (20:50)
[2020-06-24] MEDS ORDERED: Insulin LISPRO 300 UNITS/3 ML VIAL SQ SCH (21:00)
[2020-06-24] MEDS: *HR* OxyCODONE Immed Rel 5 MG TABLET PO PRN (22:18)
[2020-06-25] MEDS: Piperacillin/Tazobactam 3.375 GM in 0.9 % Sodium Chloride Mini Bag 100 ML IVPB SCH ×4 (00:40→23:40)
[2020-06-25 03:44] LABS: Basophils % 0.2 %; Eosinophils # 0.2 K/mcL (0.0-0.6); Eosinophils % 1.4 %; Hematocrit 36.7 % (37.5-50.1); Immature Granulocytes % 0.6 % (0-4); Lymphocytes # 2.5 K/mcL (0.6-4.6); Lymphocytes % 19.1 %; Mean Corpuscular HGB Conc 32.4 g/dL (31.6-35.5); Mean Corpuscular Hemoglobin 29.2 pg (28.0-33.3); Mean Corpuscular Volume 90.2 fL (83.0-100.0); Mean Platelet Volume 11.4 fL (9.4-12.4); Monocytes # 1.3 K/mcL (0.0-1.3); Neutrophils # 9.1 K/mcL (1.6-8.9); Platelet Count 193 K/mcL (140-400); Red Blood Count 4.07 M/mcL (4.19-5.50); Red Cell Distribution Width 13.8 % (11.5-14.5); Segmented Neutrophils % 68.7 %; White Blood Count 13.2 K/mcL (4.3-11.1)
[2020-06-25 03:45] LABS: Hemoglobin 11.9 g/dL (12.9-16.9)
[2020-06-25 03:48] LABS: INR 1.2; Prothrombin Time 13.4 Seconds (9.4-12.1)
[2020-06-25 03:51] LABS: Activated Partial Thrombo Time 27.4 Seconds (26.0-36.0)
[2020-06-25 04:05] LABS: BUN/Creatinine Ratio 14 (6-26); Blood Urea Nitrogen 13 mg/dL (6-20); Calcium 8.6 mg/dL (8.6-10.3); Carbon Dioxide 23 mEq/L (23-29); Chloride 103 mEq/L (98-107); Glucose 232 mg/dL (70-105); Osmolality,Calculated 284 (280-300); Sodium 133 mEq/L (136-145); eGFR For African Americans > 60 (> 60); eGFR For Non-African Americans > 60 (> 60)
[2020-06-25] MEDS ORDERED: amLODIPine 5 MG TABLET PO SCH (09:00)
[2020-06-25] MEDS: Acetaminophen 325 MG TABLET PO PRN ×2 (09:00→15:35)
[2020-06-25] MEDS: *HR* OxyCODONE Immed Rel 5 MG TABLET PO PRN ×4 (09:00→23:41)
[2020-06-25] MEDS: Lactobacillus 1 EACH CAP.SPRINK PO SCH ×2 (09:02→21:07)
[2020-06-25] MEDS: Insulin LISPRO 300 UNITS/3 ML VIAL SQ SCH ×4 (09:02→21:09)
[2020-06-25] MEDS: methocarbamoL 750 MG TABLET PO SCH ×2 (09:02→21:04)
[2020-06-25] MEDS: Pregabalin 75 MG CAPSULE PO SCH ×2 (09:02→21:03)
[2020-06-25 10:04] LABS: Estimated Average Glucose 177 mg/dl; Hemoglobin A1C 7.8 %
[2020-06-25] MEDS ORDERED: *HR* OxyCODONE Immed Rel 5 MG TABLET PO PRN (13:12)
[2020-06-25] MEDS ORDERED: Lidocaine -MPF 2% 2 ML VIAL ONE ×2 (16:51→17:30)
[2020-06-25] MEDS ORDERED: Lidocaine 1% 20 ML MDV ONE (16:56)
[2020-06-25] MEDS ORDERED: Bupivacaine-MPF 0.25% 10 ML VIAL ONE (16:56)
[2020-06-25] MEDS ORDERED: Gadolinium Contrast Agent (WT Based) IV PRN (18:25)
[2020-06-25] MEDS ORDERED: D5% in Water 1,000 ML IVC PRN (18:25)
[2020-06-25] MEDS ORDERED: *HR* Dextrose 50 % in Water (Vial) 50 ML VIAL IVP PRN (18:25)
[2020-06-25] MEDS ORDERED: Naloxone 0.4 MG/ML INJ IVP PRN (18:25)
[2020-06-25] MEDS ORDERED: Ondansetron ODT 4 MG TAB.RAPDIS SL PRN (18:25)
[2020-06-25] MEDS ORDERED: Dextrose Gel 15 GM/37.5 ML TUBE PO PRN ×2 (18:25)
[2020-06-25] MEDS: *HR* HYDROcodone/Acet 5/325 mg TABLET PO PRN (21:04)
[2020-06-26] MEDS: *HR* OxyCODONE Immed Rel 5 MG TABLET PO PRN ×5 (04:23→20:58)
[2020-06-26 07:38] LABS: Basophils % 0.4 %; Eosinophils # 0.2 K/mcL (0.0-0.6); Eosinophils % 1.7 %; Hematocrit 35.6 % (37.5-50.1); Hemoglobin 11.5 g/dL (12.9-16.9); Immature Granulocytes % 0.5 % (0-4); Lymphocytes % 20.7 %; Mean Corpuscular HGB Conc 32.3 g/dL (31.6-35.5); Mean Corpuscular Volume 89.9 fL (83.0-100.0); Mean Platelet Volume 11.4 fL (9.4-12.4); Monocytes % 10.5 %; Neutrophils # 6.4 K/mcL (1.6-8.9); Platelet Count 203 K/mcL (140-400); Red Blood Count 3.96 M/mcL (4.19-5.50); Red Cell Distribution Width 13.7 % (11.5-14.5); Segmented Neutrophils % 66.2 %; White Blood Count 9.6 K/mcL (4.3-11.1)
[2020-06-26] MEDS: Pregabalin 75 MG CAPSULE PO SCH ×2 (07:42→20:58)
[2020-06-26] MEDS: lisinopriL 20 MG TABLET PO SCH (07:43)
[2020-06-26] MEDS: methocarbamoL 750 MG TABLET PO SCH ×2 (07:43→20:58)
[2020-06-26] MEDS: Piperacillin/Tazobactam 3.375 GM in 0.9 % Sodium Chloride Mini Bag 100 ML IVPB SCH ×2 (07:43→16:44)
[2020-06-26] MEDS: Lactobacillus 1 EACH CAP.SPRINK PO SCH ×2 (07:43→20:58)
[2020-06-26 07:48] LABS: BUN/Creatinine Ratio 15 (6-26); Blood Urea Nitrogen 14 mg/dL (6-20); Calcium 8.4 mg/dL (8.6-10.3); Carbon Dioxide 27 mEq/L (23-29); Chloride 102 mEq/L (98-107); Glucose 185 mg/dL (70-105); Osmolality,Calculated 283 (280-300); Potassium 4.4 mEq/L (3.5-5.1); Sodium 134 mEq/L (136-145); eGFR For African Americans > 60 (> 60); eGFR For Non-African Americans > 60 (> 60)
[2020-06-26] MEDS: Insulin LISPRO 300 UNITS/3 ML VIAL SQ SCH ×4 (08:33→20:59)
[2020-06-26] MEDS ORDERED: lisinopriL 20 MG TABLET PO SCH (09:00)
[2020-06-26] MEDS: Vancomycin 2,000 MG/520 ML IV.SOLN IVPB SCH (12:31)
[2020-06-26] MEDS: Acetaminophen 325 MG TABLET PO PRN (16:44)
[2020-06-27] MEDS: Vancomycin 2,000 MG/520 ML IV.SOLN IVPB SCH ×3 (00:25→23:51)
[2020-06-27] MEDS: Piperacillin/Tazobactam 3.375 GM in 0.9 % Sodium Chloride Mini Bag 100 ML IVPB SCH ×4 (00:25→23:51)
[2020-06-27] MEDS: *HR* OxyCODONE Immed Rel 5 MG TABLET PO PRN ×4 (03:33→19:50)
[2020-06-27] MEDS: Lactobacillus 1 EACH CAP.SPRINK PO SCH ×2 (07:47→19:50)
[2020-06-27] MEDS: methocarbamoL 750 MG TABLET PO SCH ×2 (07:47→19:50)
[2020-06-27] MEDS: Pregabalin 75 MG CAPSULE PO SCH ×2 (07:48→19:50)
[2020-06-27] MEDS: lisinopriL 20 MG TABLET PO SCH (07:48)
[2020-06-27] MEDS: Insulin LISPRO 300 UNITS/3 ML VIAL SQ SCH ×4 (08:07→21:11)
[2020-06-27 10:06] LABS: Basophils % 0.5 %; Eosinophils # 0.2 K/mcL (0.0-0.6); Hematocrit 38.2 % (37.5-50.1); Hemoglobin 12.3 g/dL (12.9-16.9); Immature Granulocytes % 0.4 % (0-4); Lymphocytes # 1.6 K/mcL (0.6-4.6); Lymphocytes % 19.1 %; Mean Corpuscular HGB Conc 32.2 g/dL (31.6-35.5); Mean Corpuscular Hemoglobin 28.9 pg (28.0-33.3); Mean Corpuscular Volume 89.7 fL (83.0-100.0); Mean Platelet Volume 11.2 fL (9.4-12.4); Monocytes # 0.9 K/mcL (0.0-1.3); Monocytes % 10.2 %; Neutrophils # 5.8 K/mcL (1.6-8.9); Platelet Count 232 K/mcL (140-400); Red Blood Count 4.26 M/mcL (4.19-5.50); Red Cell Distribution Width 13.5 % (11.5-14.5); Segmented Neutrophils % 67.8 %; White Blood Count 8.5 K/mcL (4.3-11.1)
[2020-06-27 10:22] LABS: BUN/Creatinine Ratio 17 (6-26); Blood Urea Nitrogen 15 mg/dL (6-20); Calcium 8.9 mg/dL (8.6-10.3); Carbon Dioxide 26 mEq/L (23-29); Chloride 101 mEq/L (98-107); Glucose 200 mg/dL (70-105); Osmolality,Calculated 286 (280-300); Potassium 4.1 mEq/L (3.5-5.1); Sodium 135 mEq/L (136-145); eGFR For African Americans > 60 (> 60); eGFR For Non-African Americans > 60 (> 60)
[2020-06-27 10:39] LABS: Estimated Average Glucose 177 mg/dl; Hemoglobin A1C 7.8 %
[2020-06-28] MEDS: *HR* OxyCODONE Immed Rel 5 MG TABLET PO PRN ×3 (03:54→19:28)
[2020-06-28] MEDS: Lactobacillus 1 EACH CAP.SPRINK PO SCH ×2 (08:50→20:39)
[2020-06-28] MEDS: methocarbamoL 750 MG TABLET PO SCH ×2 (08:51→20:39)
[2020-06-28] MEDS: lisinopriL 20 MG TABLET PO SCH (08:51)
[2020-06-28] MEDS: Piperacillin/Tazobactam 3.375 GM in 0.9 % Sodium Chloride Mini Bag 100 ML IVPB SCH ×2 (08:52→18:15)
[2020-06-28] MEDS: Pregabalin 75 MG CAPSULE PO SCH ×2 (08:52→20:39)
[2020-06-28] MEDS: Insulin LISPRO 300 UNITS/3 ML VIAL SQ SCH ×4 (09:02→20:38)
[2020-06-28 10:49] LABS: Basophils # 0.1 K/mcL (0.0-0.2); Basophils % 0.6 %; Eosinophils # 0.2 K/mcL (0.0-0.6); Eosinophils % 1.9 %; Hematocrit 40.8 % (37.5-50.1); Immature Granulocytes % 0.7 % (0-4); Lymphocytes # 1.4 K/mcL (0.6-4.6); Lymphocytes % 15.9 %; Mean Corpuscular HGB Conc 31.9 g/dL (31.6-35.5); Mean Corpuscular Hemoglobin 28.5 pg (28.0-33.3); Mean Corpuscular Volume 89.5 fL (83.0-100.0); Mean Platelet Volume 10.6 fL (9.4-12.4); Monocytes # 0.8 K/mcL (0.0-1.3); Monocytes % 9.7 %; Neutrophils # 6.1 K/mcL (1.6-8.9); Platelet Count 253 K/mcL (140-400); Red Blood Count 4.56 M/mcL (4.19-5.50); Red Cell Distribution Width 13.4 % (11.5-14.5); Segmented Neutrophils % 71.2 %; White Blood Count 8.6 K/mcL (4.3-11.1)
[2020-06-28 11:09] LABS: BUN/Creatinine Ratio 16 (6-26); Blood Urea Nitrogen 15 mg/dL (6-20); Calcium 9.2 mg/dL (8.6-10.3); Carbon Dioxide 27 mEq/L (23-29); Chloride 101 mEq/L (98-107); Glucose 218 mg/dL (70-105); Osmolality,Calculated 287 (280-300); Potassium 4.2 mEq/L (3.5-5.1); Sodium 135 mEq/L (136-145); eGFR For African Americans > 60 (> 60); eGFR For Non-African Americans > 60 (> 60)
[2020-06-28] MEDS: *HR* HYDROcodone/Acet 5/325 mg TABLET PO PRN (12:34)
[2020-06-28] MEDS: Vancomycin 2,000 MG/520 ML IV.SOLN IVPB SCH (12:34)
[2020-06-29] MEDS: Vancomycin 2,000 MG/520 ML IV.SOLN IVPB SCH ×2 (00:24→16:17)
[2020-06-29] MEDS: Piperacillin/Tazobactam 3.375 GM in 0.9 % Sodium Chloride Mini Bag 100 ML IVPB SCH ×3 (00:25→16:18)
[2020-06-29 05:55] LABS: Basophils # 0.1 K/mcL (0.0-0.2); Basophils % 0.6 %; Eosinophils # 0.2 K/mcL (0.0-0.6); Eosinophils % 2.2 %; Hematocrit 38.6 % (37.5-50.1); Hemoglobin 12.7 g/dL (12.9-16.9); Immature Granulocytes % 0.7 % (0-4); Lymphocytes # 1.8 K/mcL (0.6-4.6); Lymphocytes % 20.6 %; Mean Corpuscular HGB Conc 32.9 g/dL (31.6-35.5); Mean Corpuscular Hemoglobin 29.5 pg (28.0-33.3); Mean Corpuscular Volume 89.6 fL (83.0-100.0); Mean Platelet Volume 10.8 fL (9.4-12.4); Monocytes # 0.9 K/mcL (0.0-1.3); Monocytes % 9.6 %; Neutrophils # 5.9 K/mcL (1.6-8.9); Platelet Count 248 K/mcL (140-400); Red Blood Count 4.31 M/mcL (4.19-5.50); Red Cell Distribution Width 13.4 % (11.5-14.5); Segmented Neutrophils % 66.3 %; White Blood Count 8.9 K/mcL (4.3-11.1)
[2020-06-29 06:09] LABS: BUN/Creatinine Ratio 16 (6-26); Blood Urea Nitrogen 16 mg/dL (6-20); Carbon Dioxide 26 mEq/L (23-29); Chloride 103 mEq/L (98-107); Glucose 184 mg/dL (70-105); Osmolality,Calculated 290 (280-300); Potassium 4.1 mEq/L (3.5-5.1); Sodium 137 mEq/L (136-145); eGFR For African Americans > 60 (> 60); eGFR For Non-African Americans > 60 (> 60)
[2020-06-29] MEDS: *HR* OxyCODONE Immed Rel 5 MG TABLET PO PRN ×3 (06:48→14:20)
[2020-06-29] MEDS: Lactobacillus 1 EACH CAP.SPRINK PO SCH ×2 (08:06→22:11)
[2020-06-29] MEDS: methocarbamoL 750 MG TABLET PO SCH ×2 (08:14→22:12)
[2020-06-29] MEDS: Pregabalin 75 MG CAPSULE PO SCH ×2 (08:14→22:16)
[2020-06-29] MEDS: lisinopriL 20 MG TABLET PO SCH (08:15)
[2020-06-29] MEDS: Insulin LISPRO 300 UNITS/3 ML VIAL SQ SCH ×3 (08:15→18:29)
[2020-06-29] MEDS: Acetaminophen 325 MG TABLET PO PRN (10:42)
[2020-06-29] MEDS ORDERED: *HR* Propofol 200 MG/20 ML VIAL IVP ONE (17:47)
[2020-06-29] MEDS ORDERED: Lidocaine -MPF 2% 2 ML VIAL ONE (17:47)
[2020-06-29] MEDS ORDERED: *HR* FentaNYL (PF) 100 MCG/2 ML VIAL ONE (17:47)
[2020-06-29] MEDS ORDERED: Lidocaine 1% 0 ML ONE (18:09)
[2020-06-29] MEDS ORDERED: *HR* FentaNYL (PF) 100 MCG/2 ML VIAL IVP PRN ×2 (18:21→20:17)
[2020-06-29] MEDS ORDERED: Ondansetron 4 MG/2 ML VIAL ONE (18:38)
[2020-06-29] MEDS ORDERED: Dexamethasone 4 MG/ML VIAL ONE (18:38)
[2020-06-29] MEDS ORDERED: *HR* Dextrose 50 % in Water (Vial) 50 ML VIAL IVP PRN (20:17)
[2020-06-29] MEDS ORDERED: Dextrose Gel 15 GM/37.5 ML TUBE PO PRN ×2 (20:17)
[2020-06-29] MEDS ORDERED: Acetaminophen 325 MG TABLET PO PRN (20:17)
[2020-06-29] MEDS ORDERED: D5% in Water 1,000 ML IVC PRN (20:17)
[2020-06-29] MEDS ORDERED: Naloxone 0.4 MG/ML INJ IVP PRN (20:17)
[2020-06-29] MEDS ORDERED: *HR* HYDROcodone/Acet 5/325 mg TABLET PO PRN (20:17)
[2020-06-29] MEDS ORDERED: Ondansetron ODT 4 MG TAB.RAPDIS SL PRN (20:17)
[2020-06-29] MEDS ORDERED: Insulin LISPRO 300 UNITS/3 ML VIAL SQ SCH (21:00)
[2020-06-30] MEDS: Piperacillin/Tazobactam 3.375 GM in 0.9 % Sodium Chloride Mini Bag 100 ML IVPB SCH ×2 (01:24→10:26)
[2020-06-30] MEDS: *HR* OxyCODONE Immed Rel 5 MG TABLET PO PRN ×2 (01:51→10:22)
[2020-06-30] MEDS ORDERED: Vancomycin 2,000 MG/520 ML IV.SOLN IVPB SCH (04:00)
[2020-06-30 05:29] LABS: Basophils % 0.2 %; Eosinophils % 0.2 %; Hematocrit 39.4 % (37.5-50.1); Hemoglobin 12.5 g/dL (12.9-16.9); Immature Granulocytes % 0.6 % (0-4); Lymphocytes # 1.4 K/mcL (0.6-4.6); Lymphocytes % 12.6 %; Mean Corpuscular HGB Conc 31.7 g/dL (31.6-35.5); Mean Corpuscular Hemoglobin 28.7 pg (28.0-33.3); Mean Corpuscular Volume 90.6 fL (83.0-100.0); Mean Platelet Volume 10.8 fL (9.4-12.4); Monocytes # 0.6 K/mcL (0.0-1.3); Monocytes % 4.9 %; Neutrophils # 9.2 K/mcL (1.6-8.9); Platelet Count 265 K/mcL (140-400); Red Blood Count 4.35 M/mcL (4.19-5.50); Red Cell Distribution Width 13.2 % (11.5-14.5); Segmented Neutrophils % 81.5 %; White Blood Count 11.3 K/mcL (4.3-11.1)
[2020-06-30 05:39] LABS: BUN/Creatinine Ratio 16 (6-26); Blood Urea Nitrogen 14 mg/dL (6-20); Carbon Dioxide 24 mEq/L (23-29); Chloride 102 mEq/L (98-107); Glucose 271 mg/dL (70-105); Osmolality,Calculated 292 (280-300); Potassium 4.4 mEq/L (3.5-5.1); Sodium 136 mEq/L (136-145); eGFR For African Americans > 60 (> 60); eGFR For Non-African Americans > 60 (> 60)
[2020-06-30] MEDS ORDERED: lisinopriL 20 MG TABLET PO SCH (09:00)
[2020-06-30] MEDS: Insulin LISPRO 300 UNITS/3 ML VIAL SQ SCH ×2 (10:14→12:52)
[2020-06-30 10:22] VITALS: BP 150/73
[2020-06-30] MEDS: Lactobacillus 1 EACH CAP.SPRINK PO SCH (10:32)
[2020-06-30] MEDS: methocarbamoL 750 MG TABLET PO SCH (10:34)
[2020-06-30] MEDS: Pregabalin 75 MG CAPSULE PO SCH (10:37)
[2020-06-30] MEDS ORDERED: Aminoglycoside Consult 1 EACH MC ONE (15:29)
== END 2020-06-30 15:30 | disposition home or self-care (01) | DRG 623 ==
LOC: EMEROOARM 12:45 → 3NENU 12:45 → SUATTDRO 16:25 → 3NENU 16:52
PROVIDERS: ADMIT Family Medicine; ATTEND Family Medicine

== ENCOUNTER 2020-10-04 | Observation (INO) ==
[2020-10-04] MEDS ORDERED: Naloxone 0.4 MG/ML INJ IVP PRN (01:34)
[2020-10-04] MEDS ORDERED: *HR* Dextrose 50 % in Water (Vial) 50 ML VIAL IVP PRN (01:35)
[2020-10-04] MEDS ORDERED: Dextrose Gel 15 GM/37.5 ML TUBE PO PRN ×2 (01:35)
[2020-10-04] MEDS ORDERED: D5% in Water 1,000 ML IVC PRN (01:35)
[2020-10-04] MEDS ORDERED: DilTIAZem 50 MG/50 ML IV.SOLN IVC SCH (01:45)
[2020-10-04] MEDS ORDERED: Ondansetron 4 MG/2 ML VIAL IVP PRN (02:56)
[2020-10-04 03:23] LABS: Basophils # 0.1 K/mcL (0.0-0.2); Basophils % 0.7 %; Eosinophils # 0.2 K/mcL (0.0-0.6); Eosinophils % 2.5 %; Hematocrit 45.5 % (37.5-50.1); Immature Granulocytes % 0.2 % (0-4); Lymphocytes # 3.5 K/mcL (0.6-4.6); Lymphocytes % 39.5 %; Mean Corpuscular Hemoglobin 28.5 pg (28.0-33.3); Mean Corpuscular Volume 86.3 fL (83.0-100.0); Mean Platelet Volume 11.3 fL (9.4-12.4); Monocytes # 0.6 K/mcL (0.0-1.3); Monocytes % 7.3 %; Neutrophils # 4.4 K/mcL (1.6-8.9); Platelet Count 234 K/mcL (140-400); Red Blood Count 5.27 M/mcL (4.19-5.50); Red Cell Distribution Width 14.2 % (11.5-14.5); Segmented Neutrophils % 49.8 %; White Blood Count 8.8 K/mcL (4.3-11.1)
[2020-10-04 03:39] LABS: BUN/Creatinine Ratio 13 (6-26); Blood Urea Nitrogen 12 mg/dL (6-20); Calcium 9.7 mg/dL (8.6-10.3); Carbon Dioxide 18 mEq/L (23-29); Chloride 105 mEq/L (98-107); Glucose 138 mg/dL (70-105); Magnesium 1.7 mg/dL (1.6-2.6); Osmolality,Calculated 292 (280-300); Potassium 3.9 mEq/L (3.5-5.1); Sodium 140 mEq/L (136-145); Troponin I < 0.03 ng/mL (< 0.04); eGFR For African Americans > 60 (> 60); eGFR For Non-African Americans > 60 (> 60)
[2020-10-04 03:52] LABS: Thyroid Stimulating Hormone 2.192 mcIU/mL (0.340-5.600)
[2020-10-04] MEDS: Insulin LISPRO 300 UNITS/3 ML VIAL SQ SCH ×2 (07:41→13:43)
[2020-10-04] MEDS ORDERED: Apixaban 5 MG TABLET PO SCH (09:00)
[2020-10-04] MEDS ORDERED: Pregabalin 75 MG CAPSULE PO SCH (10:45)
[2020-10-04 11:32] VITALS: BP 139/76
== END 2020-10-04 14:03 | disposition home or self-care (01) ==
LOC: 3BNU → SUATTDRO 01:16
PROVIDERS: ADMIT Student in an Organized Health Care Education/Training Program; ATTEND Internal Medicine

== ENCOUNTER 2020-11-12 06:15 | Inpatient (IN) ==
[2020-11-12] MEDS ORDERED: Vancomycin 2,000 MG/520 ML IV.SOLN IVPB ONE ×2 (06:27→19:00)
[2020-11-12] MEDS ORDERED: CeFAZolin Syr 3,000MG/30 ML 3,000 MG/30 ML SYRINGE IVPB ONE (06:27)
[2020-11-12] MEDS ORDERED: Ringers Solution, Lactated 1,000 ML IVC SCH (06:30)
[2020-11-12] MEDS ORDERED: Ondansetron 4 MG/2 ML VIAL IVP PRN (07:02)
[2020-11-12] MEDS ORDERED: Acetaminophen IV 1,000 MG/100 ML BAG IVPB ONE (07:02)
[2020-11-12] MEDS ORDERED: Heparin 1,000 UNITS/500 mL 1,000 ML ONE (07:04)
[2020-11-12] MEDS ORDERED: Heparin 1,000 UNITS/500 mL 0 ML ONE ×2 (07:10→07:15)
[2020-11-12] MEDS ORDERED: *HR* Midazolam HCl 2 MG/2 ML VIAL ONE (07:11)
[2020-11-12] MEDS ORDERED: *HR* Propofol 200 MG/20 ML VIAL IVP ONE (07:12)
[2020-11-12] MEDS ORDERED: *HR* FentaNYL (PF) 100 MCG/2 ML VIAL ONE ×2 (07:12→08:56)
[2020-11-12] MEDS ORDERED: Lidocaine -MPF 2% 2 ML VIAL ONE (07:13)
[2020-11-12] MEDS ORDERED: *HR* Rocuronium Bromide 50 MG/5 ML VIAL ONE ×2 (07:14→08:49)
[2020-11-12] MEDS ORDERED: *HR* Succinylcholine 200 MG/10 ML VIAL IVP ONE (07:51)
[2020-11-12] MEDS ORDERED: *HR* PHENYLEPHRINE 1,000 MCG/10 ML SYRINGE IVP ONE (08:01)
[2020-11-12] MEDS ORDERED: EPHEDrine 50 MG/ML VIAL ONE (08:04)
[2020-11-12] MEDS ORDERED: *HR* Phenylephrine 10 MG/ML VIAL ONE (08:16)
[2020-11-12] MEDS ORDERED: Dexamethasone 4 MG/ML VIAL ONE (08:41)
[2020-11-12] MEDS ORDERED: *HR* Heparin 5,000 UNIT/ML VIAL ONE ×2 (09:45→10:30)
[2020-11-12] MEDS ORDERED: *HR* HYDROMORPHONE 2 MG/ML VIAL ONE (11:05)
[2020-11-12] MEDS ORDERED: Vancomycin 1,000 MG, Sodium Chloride IRRigation 1,000 ML IR ONE (11:15)
[2020-11-12] MEDS ORDERED: Ondansetron 4 MG/2 ML VIAL ONE (11:26)
[2020-11-12] MEDS ORDERED: Insulin Human Regular 6 UNIT in 0.9 % Sodium Chloride 10 ML IV STA (12:01)
[2020-11-12] MEDS: *HR* HYDROmorphone PF 0.5 MG/0.5 ML SYRINGE IVP PRN ×2 (12:06→12:20)
[2020-11-12] MEDS ORDERED: Acetaminophen 325 MG TABLET PO PRN ×2 (13:37)
[2020-11-12] MEDS ORDERED: D5% in Water 1,000 ML IVC PRN (13:37)
[2020-11-12] MEDS ORDERED: Dextrose Gel 15 GM/37.5 ML TUBE PO PRN ×2 (13:37)
[2020-11-12] MEDS ORDERED: Naloxone 0.4 MG/ML INJ IVP PRN (13:37)
[2020-11-12] MEDS ORDERED: *HR* HYDROcodone/Acet 5/325 mg TABLET PO PRN ×2 (13:37)
[2020-11-12] MEDS ORDERED: *HR* Labetalol 20 MG/4 ML SYRINGE IVP PRN (13:37)
[2020-11-12] MEDS ORDERED: 0.9 % Sodium Chloride 1,000 ML IVC SCH (13:37)
[2020-11-12] MEDS ORDERED: *HR* Dextrose 50 % in Water (Vial) 50 ML VIAL IVP PRN (13:37)
[2020-11-12] MEDS ORDERED: *HR* OxyCODONE Immed Rel 5 MG TABLET PO PRN (13:37)
[2020-11-12] MEDS: *HR* Metoprolol 5 MG/5 ML VIAL IVP SCH ×2 (14:00→18:56)
[2020-11-12] MEDS: ceFAZolin 3,000 MG in 0.9 % Sodium Chloride 100 ML IVPB SCH (15:12)
[2020-11-12] MEDS: Insulin LISPRO 300 UNITS/3 ML VIAL SUBQ SCH (16:15)
[2020-11-12] MEDS: *HR* OxyCODONE Immed Rel 5 MG TABLET PO PRN (18:57)
[2020-11-12] MEDS ORDERED: Insulin LISPRO 300 UNITS/3 ML VIAL SUBQ SCH (21:00)
[2020-11-12] MEDS: Pregabalin 75 MG CAPSULE PO SCH (21:04)
[2020-11-12] MEDS: methocarbamoL 750 MG TABLET PO SCH (21:04)
[2020-11-13] MEDS: ceFAZolin 3,000 MG in 0.9 % Sodium Chloride 100 ML IVPB SCH (00:20)
[2020-11-13] MEDS: *HR* Metoprolol 5 MG/5 ML VIAL IVP SCH ×2 (00:20→05:31)
[2020-11-13] MEDS: *HR* OxyCODONE Immed Rel 5 MG TABLET PO PRN ×2 (00:26→05:54)
[2020-11-13 04:11] LABS: Basophils % 0.2 %; Eosinophils % 0.2 %; Hematocrit 40.9 % (37.5-50.1); Hemoglobin 13.1 g/dL (12.9-16.9); Immature Granulocytes % 0.6 % (0-4); Lymphocytes # 1.9 K/mcL (0.6-4.6); Lymphocytes % 15.7 %; Mean Corpuscular Hemoglobin 28.2 pg (28.0-33.3); Mean Platelet Volume 10.7 fL (9.4-12.4); Monocytes # 1.5 K/mcL (0.0-1.3); Neutrophils # 8.8 K/mcL (1.6-8.9); Platelet Count 162 K/mcL (140-400); Red Blood Count 4.65 M/mcL (4.19-5.50); Red Cell Distribution Width 14.2 % (11.5-14.5); Segmented Neutrophils % 71.3 %; White Blood Count 12.4 K/mcL (4.3-11.1)
[2020-11-13 04:27] LABS: BUN/Creatinine Ratio 16 (6-26); Blood Urea Nitrogen 17 mg/dL (6-20); Calcium 8.5 mg/dL (8.6-10.3); Carbon Dioxide 24 mEq/L (23-29); Chloride 102 mEq/L (98-107); Glucose 233 mg/dL (70-105); Osmolality,Calculated 287 (280-300); Potassium 4.2 mEq/L (3.5-5.1); Sodium 134 mEq/L (136-145); eGFR For African Americans > 60 (> 60); eGFR For Non-African Americans > 60 (> 60)
[2020-11-13] MEDS ORDERED: *HR* Heparin 5,000 UNIT/ML VIAL SQ SCH ×2 (06:00)
[2020-11-13] MEDS: Pregabalin 75 MG CAPSULE PO SCH (08:09)
[2020-11-13] MEDS: methocarbamoL 750 MG TABLET PO SCH (08:09)
[2020-11-13] MEDS: Insulin LISPRO 300 UNITS/3 ML VIAL SUBQ SCH ×2 (08:10→11:54)
[2020-11-13] MEDS ORDERED: lisinopriL 20 MG TABLET PO SCH (09:00)
[2020-11-13] MEDS ORDERED: amLODIPine 5 MG TABLET PO SCH (09:00)
[2020-11-13] MEDS ORDERED: Cholecalciferol (D-3) 1,000 UNIT (25MCG) TABLET PO SCH (09:00)
[2020-11-13 11:07] VITALS: BP 121/57
[2020-11-13] MEDS ORDERED: FLU Vac QV 20-21 (6Month+)/PF 0.5 ML SYRINGE IM ONE (13:43)
== END 2020-11-13 15:10 | disposition home or self-care (01) | DRG 253 ==
LOC: SAMDAY 06:15 → 2NNU 13:07
PROVIDERS: ADMIT Surgery; ATTEND Surgery

== ENCOUNTER 2022-05-16 19:15 | Inpatient (IN) ==
[2022-05-16 21:01] LABS: Basophils % 0.3 %; Eosinophils # 0.1 K/mcL (0.0-0.6); Eosinophils % 0.6 %; Hematocrit 38.8 % (37.5-50.1); Hemoglobin 12.6 g/dL (12.9-16.9); Immature Granulocytes % 0.7 % (0-4); Lymphocytes # 1.4 K/mcL (0.6-4.6); Lymphocytes % 11.8 %; Mean Corpuscular HGB Conc 32.5 g/dL (31.6-35.5); Mean Corpuscular Volume 89.2 fL (83.0-100.0); Mean Platelet Volume 11.8 fL (9.4-12.4); Monocytes # 1.1 K/mcL (0.0-1.3); Monocytes % 9.4 %; Neutrophils # 8.9 K/mcL (1.6-8.9); Platelet Count 202 K/mcL (140-400); Red Blood Count 4.35 M/mcL (4.19-5.50); Red Cell Distribution Width 14.5 % (11.5-14.5); Segmented Neutrophils % 77.2 %; White Blood Count 11.5 K/mcL (4.3-11.1)
[2022-05-16 21:24] LABS: BUN/Creatinine Ratio 21 (6-26); Blood Urea Nitrogen 25 mg/dL (6-20); C-Reactive Protein 149 mg/L (Less than 10); Calcium 9.6 mg/dL (8.6-10.3); Carbon Dioxide 25 mEq/L (23-29); Chloride 101 mEq/L (98-107); Glucose 249 mg/dL (70-105); Osmolality,Calculated 289 (280-300); Sodium 133 mEq/L (136-145); eGFR For African Americans > 60 (> 60); eGFR For Non-African Americans > 60 (> 60)
[2022-05-16] MEDS ORDERED: Vancomycin 2,000 MG/520 ML IV.SOLN IVPB ONE (21:33)
[2022-05-16] MEDS ORDERED: Piperacillin/Tazobactam 3.375 GM in 0.9 % Sodium Chloride Mini Bag 100 ML IVPB ONE (21:35)
[2022-05-17] MEDS ORDERED: Acetaminophen 325 MG TABLET PO PRN (00:19)
[2022-05-17] MEDS ORDERED: Ondansetron 4 MG/2 ML VIAL IVP PRN (00:19)
[2022-05-17] MEDS ORDERED: Melatonin 3 MG TABLET PO PRN (00:19)
[2022-05-17] MEDS ORDERED: Naloxone 0.4 MG/ML INJ IVP PRN (00:19)
[2022-05-17] MEDS ORDERED: D5% in Water 1,000 ML IVC PRN (00:22)
[2022-05-17] MEDS ORDERED: Dextrose Gel 15 GM/37.5 ML TUBE PO PRN ×2 (00:22)
[2022-05-17] MEDS ORDERED: *HR* Dextrose 50 % in Water (Syg) 50 ML SYRINGE IVP PRN (00:22)
[2022-05-17] MEDS ORDERED: 0.9 % Sodium Chloride 1,000 ML IVC SCH (00:30)
[2022-05-17] MEDS: *HR* OxyCODONE Immed Rel 5 MG TABLET PO PRN ×4 (01:07→22:19)
[2022-05-17] MEDS: Insulin LISPRO 300 UNITS/3 ML VIAL SUBQ SCH ×3 (05:17→17:59)
[2022-05-17] MEDS: Piperacillin/Tazobactam 3.375 GM in 0.9 % Sodium Chloride Mini Bag 100 ML IVPB SCH ×2 (05:18→15:00)
[2022-05-17] MEDS: methocarbamoL 750 MG TABLET PO PRN (05:26)
[2022-05-17 07:21] LABS: Basophils % 0.3 %; Eosinophils # 0.1 K/mcL (0.0-0.6); Eosinophils % 1.1 %; Hematocrit 34.2 % (37.5-50.1); Immature Granulocytes % 0.8 % (0-4); Lymphocytes # 2.4 K/mcL (0.6-4.6); Lymphocytes % 24.3 %; Mean Corpuscular HGB Conc 32.2 g/dL (31.6-35.5); Mean Corpuscular Volume 90.2 fL (83.0-100.0); Mean Platelet Volume 11.7 fL (9.4-12.4); Monocytes # 0.9 K/mcL (0.0-1.3); Monocytes % 8.8 %; Neutrophils # 6.4 K/mcL (1.6-8.9); Platelet Count 174 K/mcL (140-400); Red Blood Count 3.79 M/mcL (4.19-5.50); Red Cell Distribution Width 14.6 % (11.5-14.5); Segmented Neutrophils % 64.7 %; White Blood Count 9.8 K/mcL (4.3-11.1)
[2022-05-17 07:44] LABS: BUN/Creatinine Ratio 19 (6-26); Blood Urea Nitrogen 21 mg/dL (6-20); Carbon Dioxide 26 mEq/L (23-29); Chloride 104 mEq/L (98-107); Glucose 107 mg/dL (70-105); Magnesium 1.5 mg/dL (1.6-2.6); Osmolality,Calculated 287 (280-300); Potassium 4.2 mEq/L (3.5-5.1); Sodium 137 mEq/L (136-145); eGFR For African Americans > 60 (> 60); eGFR For Non-African Americans > 60 (> 60)
[2022-05-17] MEDS ORDERED: Losartan/HCTZ 50-12.5 TABLET PO SCH (09:00)
[2022-05-17] MEDS: Pregabalin 75 MG CAPSULE PO SCH ×2 (09:00→22:19)
[2022-05-17] MEDS: Cholecalciferol (D-3) 1,000 UNIT (25MCG) TABLET PO SCH (09:00)
[2022-05-17] MEDS ORDERED: Vancomycin 2,000 MG/520 ML IV.SOLN IVPB SCH (10:00)
[2022-05-17] MEDS: Insulin DETEMIR 100 UNIT/ML X5UNITS SUBQ SCH (22:23)
[2022-05-18] MEDS: Insulin LISPRO 300 UNITS/3 ML VIAL SUBQ SCH ×4 (00:28→18:31)
[2022-05-18 02:16] LABS: Basophils % 0.4 %; Eosinophils # 0.2 K/mcL (0.0-0.6); Eosinophils % 1.9 %; Hematocrit 32.9 % (37.5-50.1); Hemoglobin 10.8 g/dL (12.9-16.9); Immature Granulocytes % 1.3 % (0-4); Lymphocytes # 2.3 K/mcL (0.6-4.6); Lymphocytes % 26.8 %; Mean Corpuscular HGB Conc 32.8 g/dL (31.6-35.5); Mean Corpuscular Hemoglobin 29.7 pg (28.0-33.3); Mean Corpuscular Volume 90.4 fL (83.0-100.0); Mean Platelet Volume 11.5 fL (9.4-12.4); Monocytes # 0.7 K/mcL (0.0-1.3); Monocytes % 8.4 %; Neutrophils # 5.2 K/mcL (1.6-8.9); Platelet Count 200 K/mcL (140-400); Red Blood Count 3.64 M/mcL (4.19-5.50); Red Cell Distribution Width 14.6 % (11.5-14.5); Segmented Neutrophils % 61.2 %; White Blood Count 8.5 K/mcL (4.3-11.1)
[2022-05-18 02:32] LABS: BUN/Creatinine Ratio 19 (6-26); Blood Urea Nitrogen 19 mg/dL (6-20); Calcium 8.8 mg/dL (8.6-10.3); Carbon Dioxide 24 mEq/L (23-29); Chloride 105 mEq/L (98-107); Glucose 186 mg/dL (70-105); Magnesium 1.8 mg/dL (1.6-2.6); Osmolality,Calculated 289 (280-300); Potassium 4.4 mEq/L (3.5-5.1); Sodium 136 mEq/L (136-145); eGFR For African Americans > 60 (> 60); eGFR For Non-African Americans > 60 (> 60)
[2022-05-18 03:33] LABS: Estimated Average Glucose 192 mg/dl; Hemoglobin A1C 8.3 %
[2022-05-18] MEDS ORDERED: NON-FORMULARY MEDICATION 1 EACH EACH (Olmesartan/Hydrochlorothiazide [Olmesartan-Hctz 20-1 PO SCH (09:00)
[2022-05-18] MEDS: Aspirin 81 MG TAB.CHEW PO SCH (09:17)
[2022-05-18] MEDS: Pregabalin 75 MG CAPSULE PO SCH ×2 (09:20→22:12)
[2022-05-18] MEDS: amLODIPine 5 MG TABLET PO SCH (09:20)
[2022-05-18] MEDS: Cholecalciferol (D-3) 1,000 UNIT (25MCG) TABLET PO SCH (09:21)
[2022-05-18] MEDS ORDERED: Lidocaine -MPF 2% 2 ML VIAL ONE (10:48)
[2022-05-18] MEDS ORDERED: *HR* Midazolam HCl 2 MG/2 ML VIAL ONE (10:49)
[2022-05-18] MEDS ORDERED: *HR* FentaNYL (PF) 100 MCG/2 ML VIAL ONE (10:49)
[2022-05-18] MEDS ORDERED: *HR* FentaNYL (PF) 100 MCG/2 ML VIAL IVP PRN (11:52)
[2022-05-18] MEDS: Ringers Solution, Lactated 1,000 ML IVC SCH (11:59)
[2022-05-18] MEDS ORDERED: *HR* HYDROmorphone (PF) 1 MG/ML SYRINGE IVP SCH (12:00)
[2022-05-18] MEDS ORDERED: Vancomycin 1,000 MG, Sodium Chloride IRRigation 1,000 ML IR ONE (12:00)
[2022-05-18] MEDS ORDERED: Ondansetron 4 MG/2 ML VIAL ONE (12:25)
[2022-05-18] MEDS ORDERED: *HR* Propofol 200 MG/20 ML VIAL IVP ONE (12:36)
[2022-05-18] MEDS: Vancomycin 2,000 MG/520 ML IV.SOLN IVPB SCH (13:28)
[2022-05-18] MEDS: Piperacillin/Tazobactam 3.375 GM in 0.9 % Sodium Chloride Mini Bag 100 ML IVPB SCH ×2 (13:28→22:13)
[2022-05-18] MEDS: *HR* OxyCODONE Immed Rel 5 MG TABLET PO PRN (22:13)
[2022-05-18] MEDS: Insulin DETEMIR 100 UNIT/ML X5UNITS SUBQ SCH (22:20)
[2022-05-19] MEDS: Insulin LISPRO 300 UNITS/3 ML VIAL SUBQ SCH ×4 (00:02→18:33)
[2022-05-19] MEDS: Piperacillin/Tazobactam 3.375 GM in 0.9 % Sodium Chloride Mini Bag 100 ML IVPB SCH ×3 (05:31→22:05)
[2022-05-19 07:06] LABS: Basophils % 0.2 %; Eosinophils # 0.2 K/mcL (0.0-0.6); Eosinophils % 2.3 %; Hematocrit 32.7 % (37.5-50.1); Hemoglobin 10.9 g/dL (12.9-16.9); Lymphocytes # 2.4 K/mcL (0.6-4.6); Lymphocytes % 26.6 %; Mean Corpuscular HGB Conc 33.3 g/dL (31.6-35.5); Mean Corpuscular Hemoglobin 30.1 pg (28.0-33.3); Mean Corpuscular Volume 90.3 fL (83.0-100.0); Mean Platelet Volume 10.9 fL (9.4-12.4); Monocytes # 0.7 K/mcL (0.0-1.3); Monocytes % 8.2 %; Neutrophils # 5.5 K/mcL (1.6-8.9); Platelet Count 214 K/mcL (140-400); Red Blood Count 3.62 M/mcL (4.19-5.50); Red Cell Distribution Width 14.2 % (11.5-14.5); Segmented Neutrophils % 61.7 %
[2022-05-19 07:25] LABS: BUN/Creatinine Ratio 14 (6-26); Blood Urea Nitrogen 16 mg/dL (6-20); Carbon Dioxide 27 mEq/L (23-29); Chloride 106 mEq/L (98-107); Glucose 174 mg/dL (70-105); Magnesium 1.8 mg/dL (1.6-2.6); Osmolality,Calculated 293 (280-300); Potassium 4.3 mEq/L (3.5-5.1); Sodium 139 mEq/L (136-145); eGFR For African Americans > 60 (> 60); eGFR For Non-African Americans > 60 (> 60)
[2022-05-19] MEDS: Pregabalin 75 MG CAPSULE PO SCH ×2 (08:49→22:04)
[2022-05-19] MEDS: Cholecalciferol (D-3) 1,000 UNIT (25MCG) TABLET PO SCH (08:50)
[2022-05-19] MEDS: amLODIPine 5 MG TABLET PO SCH (08:50)
[2022-05-19] MEDS: Aspirin 81 MG TAB.CHEW PO SCH (08:50)
[2022-05-19] MEDS: Ringers Solution, Lactated 1,000 ML IVC SCH (13:18)
[2022-05-19] MEDS: Vancomycin 2,000 MG/520 ML IV.SOLN IVPB SCH ×2 (15:10)
[2022-05-19] MEDS: *HR* OxyCODONE Immed Rel 5 MG TABLET PO PRN (22:04)
[2022-05-19] MEDS: Insulin DETEMIR 100 UNIT/ML X5UNITS SUBQ SCH (22:10)
[2022-05-20] MEDS: Vancomycin 2,000 MG/520 ML IV.SOLN IVPB SCH ×3 (00:25→23:27)
[2022-05-20] MEDS: Insulin LISPRO 300 UNITS/3 ML VIAL SUBQ SCH ×4 (00:25→18:12)
[2022-05-20] MEDS: Piperacillin/Tazobactam 3.375 GM in 0.9 % Sodium Chloride Mini Bag 100 ML IVPB SCH ×3 (04:59→19:52)
[2022-05-20 06:26] LABS: Basophils % 0.4 %; Eosinophils # 0.2 K/mcL (0.0-0.6); Eosinophils % 2.4 %; Hematocrit 33.3 % (37.5-50.1); Hemoglobin 10.6 g/dL (12.9-16.9); Immature Granulocytes % 1.2 % (0-4); Lymphocytes # 2.3 K/mcL (0.6-4.6); Lymphocytes % 28.3 %; Mean Corpuscular HGB Conc 31.8 g/dL (31.6-35.5); Mean Corpuscular Hemoglobin 29.3 pg (28.0-33.3); Mean Platelet Volume 10.7 fL (9.4-12.4); Monocytes # 0.6 K/mcL (0.0-1.3); Monocytes % 6.9 %; Platelet Count 240 K/mcL (140-400); Red Blood Count 3.62 M/mcL (4.19-5.50); Red Cell Distribution Width 13.8 % (11.5-14.5); Segmented Neutrophils % 60.8 %; White Blood Count 8.2 K/mcL (4.3-11.1)
[2022-05-20 06:54] LABS: BUN/Creatinine Ratio 15 (6-26); Blood Urea Nitrogen 17 mg/dL (6-20); Carbon Dioxide 25 mEq/L (23-29); Chloride 107 mEq/L (98-107); Glucose 165 mg/dL (70-105); Magnesium 1.7 mg/dL (1.6-2.6); Osmolality,Calculated 295 (280-300); Sodium 140 mEq/L (136-145); eGFR For African Americans > 60 (> 60); eGFR For Non-African Americans > 60 (> 60)
[2022-05-20 08:23] LABS: INR 1.3; Prothrombin Time 14.4 Seconds (9.4-12.1)
[2022-05-20] MEDS: Pregabalin 75 MG CAPSULE PO SCH ×2 (08:26→19:52)
[2022-05-20] MEDS: Cholecalciferol (D-3) 1,000 UNIT (25MCG) TABLET PO SCH (08:26)
[2022-05-20] MEDS: Aspirin 81 MG TAB.CHEW PO SCH (08:26)
[2022-05-20] MEDS ORDERED: *HR* Heparin 10,000 UNIT/10 ML VIAL ONE (09:12)
[2022-05-20] MEDS ORDERED: Iopamidol - 300 100 ML INFUS..BTL ONE (09:12)
[2022-05-20] MEDS ORDERED: *HR* FentaNYL (PF) 100 MCG/2 ML VIAL ONE (09:12)
[2022-05-20] MEDS ORDERED: 0.9 % Sodium Chloride 1,000 ML ONE ×2 (09:12→09:13)
[2022-05-20] MEDS ORDERED: Heparin 1,000 UNITS/500 mL 500 ML ONE (09:12)
[2022-05-20] MEDS ORDERED: *HR* Midazolam HCl 2 MG/2 ML VIAL ONE (09:12)
[2022-05-20] MEDS: amLODIPine 5 MG TABLET PO SCH (11:41)
[2022-05-20] MEDS: *HR* Enoxaparin 40 MG/0.4 ML SYRINGE SQ SCH (18:11)
[2022-05-20] MEDS: Ringers Solution, Lactated 1,000 ML IVC SCH (18:12)
[2022-05-20] MEDS: *HR* OxyCODONE Immed Rel 5 MG TABLET PO PRN (19:25)
[2022-05-20] MEDS: Insulin DETEMIR 100 UNIT/ML X5UNITS SUBQ SCH (20:03)
[2022-05-21] MEDS: Insulin LISPRO 300 UNITS/3 ML VIAL SUBQ SCH ×4 (00:02→20:28)
[2022-05-21] MEDS: *HR* OxyCODONE Immed Rel 5 MG TABLET PO PRN ×3 (01:32→16:52)
[2022-05-21] MEDS: Piperacillin/Tazobactam 3.375 GM in 0.9 % Sodium Chloride Mini Bag 100 ML IVPB SCH ×3 (03:45→20:39)
[2022-05-21] MEDS: *HR* Enoxaparin 40 MG/0.4 ML SYRINGE SQ SCH (05:50)
[2022-05-21 06:10] LABS: Basophils % 0.4 %; Eosinophils # 0.2 K/mcL (0.0-0.6); Eosinophils % 2.1 %; Hematocrit 32.9 % (37.5-50.1); Hemoglobin 10.8 g/dL (12.9-16.9); Immature Granulocytes % 0.9 % (0-4); Lymphocytes # 2.1 K/mcL (0.6-4.6); Lymphocytes % 23.8 %; Mean Corpuscular HGB Conc 32.8 g/dL (31.6-35.5); Mean Corpuscular Hemoglobin 29.7 pg (28.0-33.3); Mean Corpuscular Volume 90.4 fL (83.0-100.0); Mean Platelet Volume 10.6 fL (9.4-12.4); Monocytes # 0.6 K/mcL (0.0-1.3); Monocytes % 6.7 %; Neutrophils # 5.9 K/mcL (1.6-8.9); Platelet Count 259 K/mcL (140-400); Red Blood Count 3.64 M/mcL (4.19-5.50); Red Cell Distribution Width 13.7 % (11.5-14.5); Segmented Neutrophils % 66.1 %; White Blood Count 8.9 K/mcL (4.3-11.1)
[2022-05-21 06:33] LABS: BUN/Creatinine Ratio 11 (6-26); Blood Urea Nitrogen 12 mg/dL (6-20); Calcium 9.1 mg/dL (8.6-10.3); Carbon Dioxide 29 mEq/L (23-29); Chloride 106 mEq/L (98-107); Glucose 149 mg/dL (70-105); Magnesium 1.7 mg/dL (1.6-2.6); Osmolality,Calculated 291 (280-300); Potassium 4.2 mEq/L (3.5-5.1); Sodium 139 mEq/L (136-145); eGFR For African Americans > 60 (> 60); eGFR For Non-African Americans > 60 (> 60)
[2022-05-21] MEDS: Pregabalin 75 MG CAPSULE PO SCH ×2 (09:58→20:39)
[2022-05-21] MEDS: Cholecalciferol (D-3) 1,000 UNIT (25MCG) TABLET PO SCH (09:58)
[2022-05-21] MEDS: Aspirin 81 MG TAB.CHEW PO SCH (09:59)
[2022-05-21] MEDS: amLODIPine 5 MG TABLET PO SCH (09:59)
[2022-05-21] MEDS: Vancomycin 2,000 MG/520 ML IV.SOLN IVPB SCH (12:37)
[2022-05-21] MEDS: Insulin DETEMIR 100 UNIT/ML X5UNITS SUBQ SCH (20:38)
[2022-05-22] MEDS: Vancomycin 2,000 MG/520 ML IV.SOLN IVPB SCH (00:32)
[2022-05-22] MEDS: Insulin LISPRO 300 UNITS/3 ML VIAL SUBQ SCH ×5 (00:40→23:53)
[2022-05-22] MEDS: Piperacillin/Tazobactam 3.375 GM in 0.9 % Sodium Chloride Mini Bag 100 ML IVPB SCH ×3 (05:13→21:20)
[2022-05-22 06:52] LABS: BUN/Creatinine Ratio 11 (6-26); Blood Urea Nitrogen 12 mg/dL (6-20); Calcium 9.3 mg/dL (8.6-10.3); Carbon Dioxide 25 mEq/L (23-29); Chloride 106 mEq/L (98-107); Glucose 141 mg/dL (70-105); Osmolality,Calculated 290 (280-300); Sodium 139 mEq/L (136-145); eGFR For African Americans > 60 (> 60); eGFR For Non-African Americans > 60 (> 60)
[2022-05-22] MEDS: *HR* Enoxaparin 40 MG/0.4 ML SYRINGE SQ SCH (08:49)
[2022-05-22] MEDS: Cholecalciferol (D-3) 1,000 UNIT (25MCG) TABLET PO SCH (08:50)
[2022-05-22] MEDS: *HR* OxyCODONE Immed Rel 5 MG TABLET PO PRN ×3 (08:50→21:28)
[2022-05-22] MEDS: amLODIPine 5 MG TABLET PO SCH (08:50)
[2022-05-22] MEDS: Pregabalin 75 MG CAPSULE PO SCH ×2 (08:50→21:20)
[2022-05-22] MEDS: Aspirin 81 MG TAB.CHEW PO SCH (08:50)
[2022-05-22] MEDS ORDERED: Insulin DETEMIR 100 UNIT/ML X5UNITS SUBQ SCH ×2 (21:00)
[2022-05-23 04:09] LABS: Basophils % 0.4 %; Eosinophils # 0.2 K/mcL (0.0-0.6); Eosinophils % 1.7 %; Hematocrit 33.5 % (37.5-50.1); Hemoglobin 10.9 g/dL (12.9-16.9); Immature Granulocytes % 0.7 % (0-4); Lymphocytes # 2.1 K/mcL (0.6-4.6); Lymphocytes % 21.1 %; Mean Corpuscular HGB Conc 32.5 g/dL (31.6-35.5); Mean Corpuscular Hemoglobin 29.5 pg (28.0-33.3); Mean Corpuscular Volume 90.5 fL (83.0-100.0); Mean Platelet Volume 10.5 fL (9.4-12.4); Monocytes # 0.7 K/mcL (0.0-1.3); Monocytes % 6.7 %; Platelet Count 267 K/mcL (140-400); Red Cell Distribution Width 13.5 % (11.5-14.5); Segmented Neutrophils % 69.4 %; White Blood Count 10.1 K/mcL (4.3-11.1)
[2022-05-23 04:25] LABS: BUN/Creatinine Ratio 11 (6-26); Blood Urea Nitrogen 15 mg/dL (6-20); Calcium 9.4 mg/dL (8.6-10.3); Carbon Dioxide 28 mEq/L (23-29); Chloride 104 mEq/L (98-107); Glucose 167 mg/dL (70-105); Osmolality,Calculated 293 (280-300); Potassium 4.2 mEq/L (3.5-5.1); Sodium 139 mEq/L (136-145); eGFR For African Americans > 60 (> 60); eGFR For Non-African Americans 56 (> 60)
[2022-05-23] MEDS: Piperacillin/Tazobactam 3.375 GM in 0.9 % Sodium Chloride Mini Bag 100 ML IVPB SCH (05:41)
[2022-05-23] MEDS: Insulin LISPRO 300 UNITS/3 ML VIAL SUBQ SCH ×3 (05:52→17:10)
[2022-05-23] MEDS ORDERED: Lidocaine -MPF 1% 5 ML AMPUL INFILT ONE (10:03)
[2022-05-23] MEDS: amLODIPine 5 MG TABLET PO SCH (10:33)
[2022-05-23] MEDS: Cholecalciferol (D-3) 1,000 UNIT (25MCG) TABLET PO SCH (10:33)
[2022-05-23] MEDS: Pregabalin 75 MG CAPSULE PO SCH ×2 (10:33→22:37)
[2022-05-23] MEDS ORDERED: Vancomycin 1,750 MG/517.5 ML IV.SOLN IVPB SCH (11:00)
[2022-05-23] MEDS: *HR* Enoxaparin 40 MG/0.4 ML SYRINGE SQ SCH (12:00)
[2022-05-23] MEDS: Aspirin 81 MG TAB.CHEW PO SCH (12:00)
[2022-05-23] MEDS: *HR* OxyCODONE Immed Rel 5 MG TABLET PO PRN ×2 (12:05→19:38)
[2022-05-23] MEDS: metroNIDAZOLE 500 MG TABLET PO SCH ×2 (16:41→22:36)
[2022-05-23] MEDS: *HR* HYDROcodone/Acet 5/325 mg TABLET PO PRN (17:10)
[2022-05-23] MEDS ORDERED: Insulin DETEMIR 100 UNIT/ML X5UNITS SUBQ SCH (21:00)
[2022-05-23] MEDS: methocarbamoL 750 MG TABLET PO PRN (22:36)
[2022-05-24] MEDS: Insulin LISPRO 300 UNITS/3 ML VIAL SUBQ SCH ×4 (00:44→18:02)
[2022-05-24 07:40] LABS: BUN/Creatinine Ratio 13 (6-26); Blood Urea Nitrogen 15 mg/dL (6-20); Calcium 9.6 mg/dL (8.6-10.3); Carbon Dioxide 26 mEq/L (23-29); Chloride 105 mEq/L (98-107); Glucose 167 mg/dL (70-105); Osmolality,Calculated 291 (280-300); Sodium 138 mEq/L (136-145); eGFR For African Americans > 60 (> 60); eGFR For Non-African Americans > 60 (> 60)
[2022-05-24] MEDS: metroNIDAZOLE 500 MG TABLET PO SCH ×3 (10:09→21:32)
[2022-05-24] MEDS: *HR* OxyCODONE Immed Rel 5 MG TABLET PO PRN ×2 (10:10→18:42)
[2022-05-24] MEDS: amLODIPine 5 MG TABLET PO SCH (10:10)
[2022-05-24] MEDS: cefTRIAXone 2,000 MG in 0.9 % Sodium Chloride Mini Bag 100 ML IVPB SCH (10:10)
[2022-05-24] MEDS: *HR* Enoxaparin 40 MG/0.4 ML SYRINGE SQ SCH (10:10)
[2022-05-24] MEDS: Cholecalciferol (D-3) 1,000 UNIT (25MCG) TABLET PO SCH (10:10)
[2022-05-24] MEDS: Pregabalin 75 MG CAPSULE PO SCH ×2 (10:10→21:32)
[2022-05-24] MEDS: Aspirin 81 MG TAB.CHEW PO SCH (10:11)
[2022-05-24] MEDS: Insulin DETEMIR 100 UNIT/ML X5UNITS SUBQ SCH (21:32)
[2022-05-24] MEDS: *HR* HYDROcodone/Acet 5/325 mg TABLET PO PRN (23:21)
[2022-05-24] MEDS: methocarbamoL 750 MG TABLET PO PRN (23:21)
[2022-05-25] MEDS: Insulin LISPRO 300 UNITS/3 ML VIAL SUBQ SCH ×4 (00:16→21:20)
[2022-05-25 05:52] LABS: Basophils % 0.4 %; Eosinophils # 0.1 K/mcL (0.0-0.6); Eosinophils % 1.8 %; Hematocrit 34.4 % (37.5-50.1); Hemoglobin 11.3 g/dL (12.9-16.9); Immature Granulocytes % 0.3 % (0-4); Lymphocytes # 1.8 K/mcL (0.6-4.6); Lymphocytes % 24.5 %; Mean Corpuscular HGB Conc 32.8 g/dL (31.6-35.5); Mean Corpuscular Volume 88.2 fL (83.0-100.0); Mean Platelet Volume 10.5 fL (9.4-12.4); Monocytes # 0.5 K/mcL (0.0-1.3); Monocytes % 7.2 %; Neutrophils # 4.8 K/mcL (1.6-8.9); Platelet Count 262 K/mcL (140-400); Red Cell Distribution Width 13.4 % (11.5-14.5); Segmented Neutrophils % 65.8 %; White Blood Count 7.3 K/mcL (4.3-11.1)
[2022-05-25 07:27] LABS: BUN/Creatinine Ratio 17 (6-26); Blood Urea Nitrogen 18 mg/dL (6-20); Calcium 9.8 mg/dL (8.6-10.3); Carbon Dioxide 26 mEq/L (23-29); Chloride 104 mEq/L (98-107); Glucose 233 mg/dL (70-105); Osmolality,Calculated 293 (280-300); Potassium 4.1 mEq/L (3.5-5.1); Sodium 137 mEq/L (136-145); eGFR For African Americans > 60 (> 60); eGFR For Non-African Americans > 60 (> 60)
[2022-05-25 07:58] LABS: INR 1.3; Prothrombin Time 14.2 Seconds (9.4-12.1)
[2022-05-25] MEDS ORDERED: Metoprolol XL (24 HR) Succ 25 MG TAB.ER.24H PO SCH (09:00)
[2022-05-25] MEDS ORDERED: Vancomycin 1,000 MG, Sodium Chloride IRRigation 1,000 ML IR ONE (10:00)
[2022-05-25] MEDS: cefTRIAXone 2,000 MG in 0.9 % Sodium Chloride Mini Bag 100 ML IVPB SCH (10:25)
[2022-05-25] MEDS: Cholecalciferol (D-3) 1,000 UNIT (25MCG) TABLET PO SCH (10:26)
[2022-05-25] MEDS: Pregabalin 75 MG CAPSULE PO SCH ×2 (10:26→22:11)
[2022-05-25] MEDS: amLODIPine 5 MG TABLET PO SCH (10:26)
[2022-05-25] MEDS: Aspirin 81 MG TAB.CHEW PO SCH (10:26)
[2022-05-25] MEDS: metroNIDAZOLE 500 MG TABLET PO SCH ×3 (10:26→22:11)
[2022-05-25] MEDS: *HR* OxyCODONE Immed Rel 5 MG TABLET PO PRN ×2 (10:31→19:39)
[2022-05-25] MEDS: Insulin DETEMIR 100 UNIT/ML X5UNITS SUBQ SCH (22:11)
[2022-05-25] MEDS: methocarbamoL 750 MG TABLET PO PRN (22:11)
[2022-05-26] MEDS: Insulin LISPRO 300 UNITS/3 ML VIAL SUBQ SCH ×2 (00:07→05:22)
[2022-05-26 06:34] LABS: Basophils % 0.5 %; Eosinophils # 0.1 K/mcL (0.0-0.6); Eosinophils % 1.7 %; Hematocrit 35.7 % (37.5-50.1); Hemoglobin 11.6 g/dL (12.9-16.9); Immature Granulocytes % 0.4 % (0-4); Lymphocytes % 23.9 %; Mean Corpuscular HGB Conc 32.5 g/dL (31.6-35.5); Mean Corpuscular Hemoglobin 28.9 pg (28.0-33.3); Mean Corpuscular Volume 88.8 fL (83.0-100.0); Mean Platelet Volume 10.6 fL (9.4-12.4); Monocytes # 0.6 K/mcL (0.0-1.3); Monocytes % 7.4 %; Neutrophils # 5.5 K/mcL (1.6-8.9); Platelet Count 250 K/mcL (140-400); Red Blood Count 4.02 M/mcL (4.19-5.50); Red Cell Distribution Width 13.5 % (11.5-14.5); Segmented Neutrophils % 66.1 %; White Blood Count 8.3 K/mcL (4.3-11.1)
[2022-05-26 07:06] LABS: BUN/Creatinine Ratio 15 (6-26); Blood Urea Nitrogen 16 mg/dL (6-20); Calcium 9.5 mg/dL (8.6-10.3); Carbon Dioxide 28 mEq/L (23-29); Chloride 104 mEq/L (98-107); Glucose 212 mg/dL (70-105); Osmolality,Calculated 293 (280-300); Potassium 4.2 mEq/L (3.5-5.1); Sodium 138 mEq/L (136-145); eGFR For African Americans > 60 (> 60); eGFR For Non-African Americans > 60 (> 60)
[2022-05-26 07:17] LABS: Magnesium 1.7 mg/dL (1.6-2.6)
[2022-05-26] MEDS: *HR* Enoxaparin 40 MG/0.4 ML SYRINGE SQ SCH (08:19)
[2022-05-26] MEDS ORDERED: Magnesium Oxide 400 MG TABLET PO SCH (09:00)
[2022-05-26] MEDS ORDERED: *HR* Propofol 200 MG/20 ML VIAL IVP ONE (09:53)
[2022-05-26] MEDS ORDERED: Lidocaine HCL 4 ML Topical Solution (Laryng-O-Jet Kit Sterile Pak) TP ONE (09:57)
[2022-05-26] MEDS ORDERED: *HR* Rocuronium Bromide 50 MG/5 ML VIAL ONE ×2 (09:57→15:39)
[2022-05-26] MEDS ORDERED: Lidocaine -MPF 2% 5 ML VIAL ONE ×2 (09:57→15:40)
[2022-05-26] MEDS ORDERED: Ondansetron 4 MG/2 ML VIAL ONE (09:57)
[2022-05-26] MEDS ORDERED: *HR* Heparin 5,000 UNIT/ML VIAL ONE (10:02)
[2022-05-26] MEDS ORDERED: *HR* Remifentanil 2 MG VIAL IVP ONE (10:15)
[2022-05-26] MEDS ORDERED: *HR* FentaNYL (PF) 100 MCG/2 ML VIAL ONE (10:25)
[2022-05-26] MEDS ORDERED: *HR* Midazolam HCl 2 MG/2 ML VIAL ONE (10:25)
[2022-05-26] MEDS ORDERED: Vancomycin 1,000 MG, Sodium Chloride IRRigation 1,000 ML IR ONE (11:00)
[2022-05-26] MEDS ORDERED: Acetaminophen IV 1,000 MG/100 ML BAG IVPB ONE (12:35)
[2022-05-26] MEDS ORDERED: Famotidine 20 MG/2 ML VIAL IVP ONE (12:35)
[2022-05-26] MEDS ORDERED: *HR* Phenylephrine 10 MG/ML VIAL ONE (14:32)
[2022-05-26] MEDS ORDERED: EPHEDrine 50 MG/ML VIAL ONE (14:41)
[2022-05-26] MEDS ORDERED: *HR* Magnesium Sulfate 1 GM/2 ML VIAL ONE (16:49)
[2022-05-26] MEDS ORDERED: *HR* HYDROMORPHONE 2 MG/ML VIAL ONE (17:17)
[2022-05-26] MEDS ORDERED: *HR* Labetalol 20 MG/4 ML SYRINGE IVP PRN (19:35)
[2022-05-26] MEDS ORDERED: Ondansetron 4 MG/2 ML VIAL IVP PRN ×2 (19:35→21:18)
[2022-05-26] MEDS: *HR* HYDROmorphone PF 0.5 MG/0.5 ML SYRINGE IVP PRN ×4 (20:36→21:00)
[2022-05-26] MEDS ORDERED: *HR* Dextrose 50 % in Water (Syg) 50 ML SYRINGE IVP PRN (21:18)
[2022-05-26] MEDS ORDERED: Melatonin 3 MG TABLET PO PRN (21:18)
[2022-05-26] MEDS ORDERED: 0.9 % Sodium Chloride 1,000 ML IVC SCH (21:18)
[2022-05-26] MEDS ORDERED: Naloxone 0.4 MG/ML INJ IVP PRN (21:18)
[2022-05-26] MEDS ORDERED: methocarbamoL 750 MG TABLET PO PRN (21:18)
[2022-05-26] MEDS ORDERED: Dextrose Gel 15 GM/37.5 ML TUBE PO PRN ×2 (21:18)
[2022-05-26] MEDS ORDERED: D5% in Water 1,000 ML IVC PRN (21:18)
[2022-05-26] MEDS ORDERED: Acetaminophen 325 MG TABLET PO PRN (21:18)
[2022-05-26] MEDS ORDERED: *HR* OxyCODONE Immed Rel 5 MG TABLET PO PRN (21:18)
[2022-05-26] MEDS: *HR* HYDROcodone/Acet 5/325 mg TABLET PO PRN (23:19)
[2022-05-27] MEDS: Insulin LISPRO 300 UNITS/3 ML VIAL SUBQ SCH ×2 (00:56→05:56)
[2022-05-27] MEDS: Pregabalin 75 MG CAPSULE PO SCH ×2 (02:55→07:51)
[2022-05-27 05:00] LABS: Basophils % 0.2 %; Hematocrit 32.1 % (37.5-50.1); Hemoglobin 10.7 g/dL (12.9-16.9); Immature Granulocytes % 0.4 % (0-4); Lymphocytes # 1.2 K/mcL (0.6-4.6); Lymphocytes % 9.1 %; Mean Corpuscular HGB Conc 33.3 g/dL (31.6-35.5); Mean Corpuscular Hemoglobin 29.6 pg (28.0-33.3); Mean Corpuscular Volume 88.9 fL (83.0-100.0); Monocytes # 0.7 K/mcL (0.0-1.3); Monocytes % 5.4 %; Neutrophils # 10.9 K/mcL (1.6-8.9); Platelet Count 266 K/mcL (140-400); Red Blood Count 3.61 M/mcL (4.19-5.50); Red Cell Distribution Width 13.5 % (11.5-14.5); Segmented Neutrophils % 84.9 %
[2022-05-27 05:02] LABS: White Blood Count 12.8 K/mcL (4.3-11.1)
[2022-05-27 05:12] LABS: BUN/Creatinine Ratio 16 (6-26); Blood Urea Nitrogen 15 mg/dL (6-20); Calcium 8.7 mg/dL (8.6-10.3); Carbon Dioxide 23 mEq/L (23-29); Chloride 101 mEq/L (98-107); Glucose 338 mg/dL (70-105); Magnesium 1.8 mg/dL (1.6-2.6); Osmolality,Calculated 288 (280-300); Potassium 4.7 mEq/L (3.5-5.1); Sodium 132 mEq/L (136-145); eGFR For African Americans > 60 (> 60); eGFR For Non-African Americans > 60 (> 60)
[2022-05-27] MEDS ORDERED: *HR* Enoxaparin 40 MG/0.4 ML SYRINGE SQ SCH (07:00)
[2022-05-27 07:50] VITALS: TEMP 98
[2022-05-27] MEDS: *HR* HYDROcodone/Acet 5/325 mg TABLET PO PRN (08:09)
[2022-05-27] MEDS ORDERED: Aspirin 81 MG TAB.CHEW PO SCH (09:00)
[2022-05-27] MEDS ORDERED: amLODIPine 5 MG TABLET PO SCH (09:00)
[2022-05-27] MEDS ORDERED: Metoprolol XL (24 HR) Succ 25 MG TAB.ER.24H PO SCH (09:00)
[2022-05-27] MEDS ORDERED: NON-FORMULARY MEDICATION 1 EACH EACH (Cholecalciferol (Vitamin D3) [Vitamin D3] 125 MCG Ca PO SCH (09:00)
[2022-05-27] MEDS ORDERED: Magnesium Oxide 400 MG TABLET PO SCH (09:00)
[2022-05-27] MEDS ORDERED: metroNIDAZOLE 500 MG TABLET PO SCH (09:00)
[2022-05-27] MEDS ORDERED: Cholecalciferol (D-3) 1,000 UNIT (25MCG) TABLET PO SCH (09:00)
[2022-05-27] MEDS ORDERED: cefTRIAXone 2,000 MG in 0.9 % Sodium Chloride 20 ML IVP SCH (09:00)
[2022-05-27] MEDS ORDERED: Insulin LISPRO 300 UNITS/3 ML VIAL SUBQ SCH ×2 (11:30→21:00)
[2022-05-27 11:39] VITALS: BP 151/48; PULSE 61; O2SAT 95
[2022-05-27] MEDS ORDERED: Insulin DETEMIR 100 UNIT/ML X5UNITS SUBQ SCH (21:00)
== END 2022-05-27 15:45 | disposition home health service (06) | DRG 629 ==
LOC: 4WAOSI 19:15 → EMEROOARM 19:15 → SUATTDRO 23:37 → 4WAOSI 05-17 00:23 → SUATTDRO 05-18 12:28 → 2NNU 05-26 16:04
PROVIDERS: ADMIT Internal Medicine; ATTEND Internal Medicine